=== PATIENT | female | born 1960 | race Caucasian/White ===

== ENCOUNTER 2017-02-16 15:41 | Emergency (ER) | payer BC ==
[~2017-02-16] VITALS: Ht 162.6 cm; Wt 94.3 kg
[~2017-02-16 15:41] MED LIST: ARIP2TAB3 PO; CIPR-255 PO; CLOB-65 EXT; IMT100 PO; LISD30CA4 PO; VENL150C PO; VENL75CA PO
[2017-02-16 15:42] VITALS: TEMP 36.5; Ht 162.6 cm; Wt 94.3 kg
[2017-02-16] MEDS ORDERED: ONDANSETRON INJ 2 MG/ML 2 ML VIAL IV STA (15:51)
[2017-02-16] MEDS ORDERED: SODIUM CHLORIDE 0.9% 1000ML 1,000 ML IV STA (15:51)
[2017-02-16] MEDS ORDERED: MoRPHine SULFATE 10 MG/ML CARP/VIAL IV STA (15:51)
[2017-02-16] MEDS ORDERED: CLON0.5T3 PO (15:56)
[2017-02-16 16:12] LABS: BASO % 0.1 %; BASO ABS # 0.01 K/uL (0-0.2); COMPLETE YES; HEMATOCRIT 41.3 % (37-47); IG% 0.4 %; LYMPH % 30.8 %; LYMPH ABS # 4.23 K/uL (1.2-3.4); MEAN CELL VOLUME 87.7 fL (80-100); MEAN CORPUSCULAR HEMOGLOBIN 30.4 pg (25-34); MEAN CORPUSCULAR HGB CONC 34.6 g/dl (32-36); MONO % 8.9 %; NEUT % 57.8 %; PLATELET COUNT 354 K/uL (130-400); RED BLOOD COUNT 4.71 M/uL (4.2-5.4); WHITE BLOOD COUNT 13.75 K/uL (4.8-10.8)
[2017-02-16 16:25] LABS: URINE APPEARANCE CLEAR (CLEAR); URINE BILIRUBIN NEG (NEG); URINE COLOR YELLOW; URINE EPITHELIAL CELL AUTO >30 /lpf (0-5); URINE NITRITE NEG (NEG); URINE PH 5.5 (4.5-7.5); UROBILINOGEN NEG (NEG); ZZUR CULT IF INDIC CLEAN CATCH YES
[2017-02-16] MEDS ORDERED: LISD70CA PO (16:25)
[2017-02-16] MEDS ORDERED: CYAN100020 PO (16:25)
[2017-02-16] MEDS ORDERED: VENL37.593 PO (16:25)
[2017-02-16] MEDS ORDERED: CLBCRM30 EXT (16:25)
[2017-02-16] MEDS ORDERED: CHOL20009 PO (16:25)
[2017-02-16] MEDS ORDERED: LXP10 PO (16:25)
--- NOTE | 2017-02-16 16:34 | DIAGNOSTIC IMAGING REPORT ---
CT SCAN OF THE ABDOMEN AND PELVIS WITHOUT CONTRAST CLINICAL HISTORY: Left flank pain. COMPARISON STUDY: No previous studies for comparison. TECHNIQUE: CT scan of the abdomen and pelvis was performed from the lung bases to the proximal femurs. Images are reviewed in the axial, sagittal, and coronal planes. IV contrast was not administered for this examination. CT DOSE: 1549.29 mGy.cm FINDINGS: Lower chest: The heart is normal in size and configuration, without pericardial effusion. The lung bases and pleural spaces are clear. Liver: The unenhanced liver is normal in size, contour, and attenuation. There is no intrahepatic biliary ductal dilatation. Gallbladder: Unremarkable. Spleen: Normal in size and attenuation. Pancreas: Unremarkable. Adrenal glands: Unremarkable. Kidneys: No right renal calculi are visualized. There are 3 left renal calculi, the largest of which measures 2 mm. There is left-sided perinephric stranding. There is mild left-sided hydronephrosis. There is left periureteral stranding. There is a 3.5 mm calculus at the level the left ureterovesical junction Bowel: There are no transition zones indicate bowel obstruction. The appendix appears normal. There is no acute diverticulitis. Peritoneum: There is no intraperitoneal free air or abdominal ascites. Vasculature: The abdominal aorta is normal in course and caliber. Adenopathy: None. Pelvic viscera: The bladder, and pelvic viscera are unremarkable. Skeletal structures: There is a 9 mm cyst within the femoral head neck junction on the left. IMPRESSION: 1. 3.5 mm obstructing calculus at the level the left ureterovesical junction. 2. Left-sided nephrolithiasis 3. No evidence of bowel obstruction. No evidence of free air 4. Normal appendix Electronically signed by: Donato Salgado M.D. 02/16/2017 4:32 PM Dictated Date/Time: 02/16/2017 4:29 PM
[2017-02-16 16:35] LABS: MANUAL MICROSCOPIC REQUIRED? NO; REVIEW REQ? NO
[2017-02-16 16:40] LABS: ALB/GLOB RATIO 1.1 (0.9-2); BUN/CREATININE RATIO 19.1 (10-20); CALCIUM 10.9 mg/dl (8.5-10.1); CREATININE 0.96 mg/dl (0.60-1.20); POTASSIUM 3.9 mmol/L (3.5-5.1)
[2017-02-16] MEDS ORDERED: CIPROFLOXACIN 500 MG TAB PO STA (17:00)
[2017-02-16] MEDS ORDERED: ONDANSETRON HOME PACK 4MG OD TAB PO ONE (17:00)
[2017-02-16] MEDS ORDERED: PERCOCET HOME PACK PO ONE (17:00)
[2017-02-16] MEDS ORDERED: TAMSULOSIN HCL 0.4 MG CAP PO ONE (17:00)
[2017-02-16] MEDS ORDERED: TAMS0.4C38 PO (17:27)
[2017-02-16] MEDS ORDERED: OXYC-57 PO (17:27)
[2017-02-16] MEDS ORDERED: CIPR-255 PO (17:27)
[2017-02-16] MEDS ORDERED: ONDA4TAB10 SL (17:27)
--- NOTE | 2017-02-16 17:31 | EMERGENCY ROOM VISIT NOTE ---
History First contact with patient: 15:46 Chief Complaint: FLANK PAIN Stated Complaint: SEVERE LF FLANK PAIN History of Present Illness The patient is a 56 year old female who presents to the Emergency Room with complaints of sudden onset of severe left flank pain 30 minutes ago. The patient states that while she was sitting at lunch, she developed a sudden onset of very severe pain in her left flank with radiation into the left groin. She rates the discomfort a 10/10. She has been nauseous but has not had any vomiting. She does report a feeling of pressure in her lower abdomen. She denies any urinary symptoms, fevers/chills, chest pain or shortness of breath. She denies any history of similar symptoms. She denies any history of kidney stones. The patient has not taken any medication for pain. Review of Systems A complete 10-point Review of Systems was discussed with the patient, with pertinent positives and negatives listed in the History of Present Illness. All remaining Review of Systems questions can be considered negative unless otherwise specified. Past Medical/Surgical History Medical Problems: (1) Anxiety Family History Cancer Heart disease Hypertension Seizures Social History Smoking Status: Never Smoker Alcohol Use: occasionally Marital Status: Housing Status: lives with significant other Occupation Status: unemployed Current/Historical Medications Scheduled Cholecalciferol (Vitamin D), 1 TAB PO DAILY Ciprofloxacin Hcl (Cipro), 500 MG PO BID Clobetasol Propionate (Clobetasol Propionate Cream 0.05%), 1 APPLN EXT PRN UD Cyanocobalamin (Vitamin B12), 1 TAB PO DAILY Escitalopram Oxalate (Escitalopram Oxalate), 10 MG PO DAILY Lisdexamfetamine Dimesylate (Vyvanse), 70 MG PO DAILY Ondasetron Odt (Zofran Odt), 4 MG SL Q6H Tamsulosin Hcl (Flomax), 0.4 MG PO DAILY Venlafaxine Hcl (Venlafaxine Extended Rel), 37.5 MG PO DAILY Scheduled PRN Clonazepam (Klonopin), 0.5 MG PO UD PRN for Anxiety Oxycodone/Acetaminophen 5MG/325MG (Percocet 5MG/325MG), 1-2 TABS PO Q4H PRN for Pain Sumatriptan Succinate (Imitrex), 100 MG PO UD PRN for Migraine Allergies Coded Allergies: Penicillins (Verified Allergy, Intermediate, RASH, 11/27/15) Sulfa Drugs (Verified Adverse Reaction, Intermediate, RASH, 11/27/15) Physical Exam Vital Signs Date Time Temp Pulse Resp B/P Pulse Ox O2 Delivery O2 Flow Rate FiO2 02/16/17 17:46 91 18 157/94 99 Room Air 02/16/17 16:29 92 18 175/112 97 Room Air 02/16/17 15:42 36.5 96 20 207/110 98 Room Air Physical Exam VITALS: Vitals are noted on the nurse's note and reviewed by myself. Vital signs stable. GENERAL: This is a 56-year-old female, tearful and appears to be in pain, nondiaphoretic, well-developed well-nourished. SKIN: Capillary reflex less than 2 seconds. HEART: Regular rate and rhythm without murmurs gallops or rubs. LUNGS: Clear to auscultation bilaterally without wheezes, rales or rhonchi. ABDOMEN: Positive bowel sounds x 4. Soft, mild left lower quadrant tenderness to palpation. No guarding or rebound tenderness. MUSCULOSKELETAL: No CVA tenderness. NEURO: Patient was alert and oriented to person place and time. Medical Decision & Procedures ER Provider Diagnostic Interpretation: CT SCAN OF THE ABDOMEN AND PELVIS WITHOUT CONTRAST FINDINGS: Lower chest: The heart is normal in size and configuration, without pericardial effusion. The lung bases and pleural spaces are clear. Liver: The unenhanced liver is normal in size, contour, and attenuation. There is no intrahepatic biliary ductal dilatation. Gallbladder: Unremarkable. Spleen: Normal in size and attenuation. Pancreas: Unremarkable. Adrenal glands: Unremarkable. Kidneys: No right renal calculi are visualized. There are 3 left renal calculi, the largest of which measures 2 mm. There is left-sided perinephric stranding. There is mild left-sided hydronephrosis. There is left periureteral stranding. There is a 3.5 mm calculus at the level the left ureterovesical junction Bowel: There are no transition zones indicate bowel obstruction. The appendix appears normal. There is no acute diverticulitis. Peritoneum: There is no intraperitoneal free air or abdominal ascites. Vasculature: The abdominal aorta is normal in course and caliber. Adenopathy: None. Pelvic viscera: The bladder, and pelvic viscera are unremarkable. Skeletal structures: There is a 9 mm cyst within the femoral head neck junction on the left. IMPRESSION: 1. 3.5 mm obstructing calculus at the level the left ureterovesical junction. 2. Left-sided nephrolithiasis 3. No evidence of bowel obstruction. No evidence of free air 4. Normal appendix Laboratory Results 02/16/17 16:01 Red Blood Count 4.71, Mean Corpuscular Volume 87.7, Mean Corpuscular Hemoglobin 30.4, Mean Corpuscular Hemoglobin Concent 34.6, Mean Platelet Volume 11.0, Neutrophils (%) (Auto) 57.8, Lymphocytes (%) (Auto) 30.8, Monocytes (%) (Auto) 8.9, Eosinophils (%) (Auto) 2.0, Basophils (%) (Auto) 0.1, Neutrophils # (Auto) 7.97, Lymphocytes # (Auto) 4.23, Monocytes # (Auto) 1.22, Eosinophils # (Auto) 0.27, Basophils # (Auto) 0.01 02/16/17 16:01 Test 02/16/17 16:01 02/16/17 16:05 White Blood Count 13.75 K/uL (4.8-10.8) Red Blood Count 4.71 M/uL (4.2-5.4) Hemoglobin 14.3 g/dL (12.0-16.0) Hematocrit 41.3 % (37-47) Mean Corpuscular Volume 87.7 fL (80-100) Mean Corpuscular Hemoglobin 30.4 pg (25-34) Mean Corpuscular Hemoglobin Concent 34.6 g/dl (32-36) Platelet Count 354 K/uL (130-400) Mean Platelet Volume 11.0 fL (7.4-10.4) Neutrophils (%) (Auto) 57.8 % Lymphocytes (%) (Auto) 30.8 % Monocytes (%) (Auto) 8.9 % Eosinophils (%) (Auto) 2.0 % Basophils (%) (Auto) 0.1 % Neutrophils # (Auto) 7.97 K/uL (1.4-6.5) Lymphocytes # (Auto) 4.23 K/uL (1.2-3.4) Monocytes # (Auto) 1.22 K/uL (0.11-0.59) Eosinophils # (Auto) 0.27 K/uL (0-0.5) Basophils # (Auto) 0.01 K/uL (0-0.2) RDW Standard Deviation 48.3 fL (36.4-46.3) RDW Coefficient of Variation 15.0 % (11.5-14.5) Immature Granulocyte % (Auto) 0.4 % Immature Granulocyte # (Auto) 0.05 K/uL (0.00-0.02) Anion Gap 10.0 mmol/L (3-11) Est Creatinine Clear Calc Drug Dose 73.8 ml/min Estimated GFR () 77.2 Estimated GFR (Non- 66.6 BUN/Creatinine Ratio 19.1 (10-20) Calcium Level 10.9 mg/dl (8.5-10.1) Total Bilirubin 0.6 mg/dl (0.2-1) Aspartate Amino Transf (AST/SGOT) 15 U/L (15-37) Alanine Aminotransferase (ALT/SGPT) 25 U/L (12-78) Alkaline Phosphatase 172 U/L (45-117) Total Protein 7.9 gm/dl (6.4-8.2) Albumin 4.1 gm/dl (3.4-5.0) Globulin 3.8 gm/dl (2.5-4.0) Albumin/Globulin Ratio 1.1 (0.9-2) Chemistry Specimen Hemolysis Urine Color YELLOW Urine Appearance CLEAR (CLEAR) Urine pH 5.5 (4.5-7.5) Urine Specific Floris 1.020 (1.000-1.030) Urine Protein TRACE (NEG) Urine Glucose (UA) NEG (NEG) Urine Ketones NEG (NEG) Urine Occult Blood 3+ (NEG) Urine Nitrite NEG (NEG) Urine Bilirubin NEG (NEG) Urine Urobilinogen NEG (NEG) Urine Leukocyte Esterase MODERATE (NEG) Urine WBC (Auto) >30 /hpf (0-5) Urine RBC (Auto) >30 /hpf (0-4) Urine Hyaline Casts (Auto) 5-10 /lpf (0-5) Urine Epithelial Cells (Auto) >30 /lpf (0-5) Urine Bacteria (Auto) NEG (NEG) Medications Administered Medications (Trade) Dose Ordered Sig/Job Route Start Time Stop Time Status Last Admin Dose Admin Sodium Chloride (Nss 1000ml) 1,000 ml @ 999 mls/hr Q1H1M STAT IV 02/16/17 15:51 02/16/17 16:51 DC 02/16/17 16:07 999 MLS/HR Morphine Sulfate (MoRPHine SULFATE INJ) 8 mg NOW STAT IV 02/16/17 15:51 02/16/17 15:53 DC 02/16/17 16:07 8 MG Ondansetron HCl (Zofran Inj) 4 mg NOW STAT IV 02/16/17 15:51 02/16/17 15:54 DC 02/16/17 16:07 4 MG Ciprofloxacin (Cipro Tab) 500 mg NOW STAT PO 02/16/17 17:00 02/16/17 17:07 DC 02/16/17 17:43 500 MG Tamsulosin HCl (Flomax Cap) 0.4 mg NOW ONCE PO 02/16/17 17:00 02/16/17 17:07 DC 02/16/17 17:43 0.4 MG Oxycodone/ Acetaminophen (Percocet 5/ 325MG Home Pack) 1 homepack UD ONCE PO 02/16/17 17:00 02/16/17 17:07 DC 02/16/17 17:00 1 HOMEPACK Ondansetron HCl (ZOFRAN ODT 4MG Home Pack) 1 homepack UD ONCE PO 02/16/17 17:00 02/16/17 17:07 DC 02/16/17 17:00 1 HOMEPACK Medical Decision Differential diagnosis includes renal colic chills, pyelonephritis, gastroenteritis, colitis, bowel obstruction, diverticulitis, aortic dissection, musculoskeletal pain, among others. The patient was evaluated as above. Labs were drawn and IV access was obtained. Imaging studies were performed and read by radiology as above. The patient was medicated with 1 L normal saline solution,. The patient was reassessed multiple times during their stay in the emergency department and remained in stable condition. The patient is a 56-year-old female who presents today complaining of left flank pain. The patient is significantly hypertensive likely secondary to pain. Labs revealed mild leukocytosis of 13.7 most likely secondary to stress. Otherwise no concerning anemia or electrolyte abnormalities CT scan did show a 3.5 mm renal calculus at the left UVJ. Urinalysis did show leukocyte esterase and white blood cells. This may be due to contamination, but given the patient's CT findings, I will place her on ciprofloxacin pending the culture. The patient felt significantly better after IV pain medication and antiemetics. Her hypertension improved. I do feel the patient may be treated as an outpatient and she was agreeable to this. She was given prescriptions for Flomax, Zofran and Percocet. She was given a urine strainer and information for urology follow-up. She was instructed to return if she has any worsening of her current condition or new/concerning symptoms. Based on the patient's presentation, lab results, and imaging studies, I feel the patient is stable for outpatient treatment. Discharge instructions were reviewed with the patient. The patient verbalized understanding of my assessment and treatment plan and was discharged home in good condition. Impression Primary Impression: Left ureteral calculus Departure Information Dispostion Home / Self-Care Condition GOOD Prescriptions Ciprofloxacin Hcl (CIPRO) 500 Mg Tab 500 MG PO BID for 7 Days, #14 TAB Prov: Maryjo Dey PA-C 02/16/17 Ondasetron Odt (ZOFRAN ODT) 4 Mg Tab 4 MG SL Q6H for Nausea, #15 TAB Prov: Maryjo Dey PA-C 02/16/17 Oxycodone/Acetaminophen 5MG/325MG (PERCOCET 5MG/325MG) Tab 1-2 TABS PO Q4H Y for Pain, #20 TAB For Initial Treatment Prov: Maryjo Dey PA-C 02/16/17 Tamsulosin Hcl (FLOMAX) 0.4 Mg Cap 0.4 MG PO DAILY for 10 Days, #10 CAP Prov: Maryjo Dey PA-C 02/16/17 Referrals Magdy Cueto M.D.(KARAN) (PCP) Lenny Rausch M.D. Patient Instructions Kidney Stones, My [facility] Additional Instructions You have been treated in the Emergency Department today for a Kidney Stone ( Nephrolithiasis). You have received pain medicine in the emergency department which impairs your ability to operate a vehicle. It is illegal for you to drive after receiving these medicines. You were prescribed ciprofloxacin to be taken twice daily. This is an antibiotic. All antibiotics have the potential to cause diarrhea. Stop this medication and contact a medical provider if you were to develop any significant adverse side effects including: wheezing, shortness of breath, passing out, vomiting, or a diffuse rash. Always take antibiotics as directed and COMPLETE the ENTIRE course regardless of the improvement of your symptoms. You have been prescribed Percocet to be used for pain control. This is a narcotic medication. You cannot drive or consume alcohol while on this medicine. This medicine should only be used for pain that cannot be controlled with [id number] pain medicines. You should take a stool softener such as Colace, as narcotic medications may cause constipation. You have been prescribed Zofran to be used for any nausea or vomiting. Take as prescribed. You have been prescribed Flomax 0.4 mg to be taken ONCE daily. This medicine has been prescribed as it can help relax the smooth muscles of the urinary tract increasing transit time of the kidney stone. For pain control, you can use the following [id number] medicines (if >12 yo): - Regular strength (325mg/tab) Tylenol (acetaminophen) 2 tabs every 4-6 hours as needed. Do not exceed 12 tablets in a 24 hour period. Avoid taking more than 4 grams (4000 mg) of Tylenol per day. This includes any other sources of acetaminophen you may take on a regular basis. - Regular strength (200 mg/tab) Advil (ibuprofen) 1-2 tabs every 4-6 hours as needed. Do not exceed a dose of 3200 mg per day. You have been provided a strainer and specimen collection cup. You should strain your urine to collect any passed stones. Your stones can be placed into the specimen cup and taken to your Urologist for further evaluation. You have been provided the contact information for the on-call Urologist. Schedule follow-up appointment with a urologist if you are not able to pass the stone on your own in 2-3 days. Return to the Emergency Department if your symptoms persist despite the treatment plan outlined above or if you develop the following symptoms: intractable pain, fever, chills, or large amounts of blood in your urine.
[2017-02-16 17:46] VITALS: BP 157/94; PULSE 91; O2SAT 99
== END 2017-02-16 17:50 | disposition home or self-care (01) ==
LOC: C.EDB 15:42 → C.EDC 17:50
DX: N20.1 Calculus of ureter (principal); F41.9 Anxiety disorder, unspecified; Z79.899 Other long term (current) drug therapy

== ENCOUNTER → 2017-06-18 | Outpatient (CLI) | payer BC ==
[~2017-06-18] MED LIST changes: -ARIP2TAB3 PO; +CHOL20009 PO; +CLBCRM30 EXT; -CLOB-65 EXT; +CLON0.5T3 PO; +CYAN100020 PO; -LISD30CA4 PO; +LISD70CA PO; +LXP10 PO; +ONDA4TAB10 SL; +OXYC-57 PO; -VENL150C PO; +VENL37.593 PO; -VENL75CA PO
== END | disposition home or self-care (01) ==
LOC: C.PAPS 11:18
PROVIDERS: ATTEND Obstetrics & Gynecology
DX: Z01.419 Encounter for gynecological examination (general) (routine) without abnormal findings (principal); Z11.51 Encounter for screening for human papillomavirus (HPV)

== ENCOUNTER 2021-02-21 16:48 | Observation (INO) ==
--- NOTE | 2021-02-21 18:31 | Emergency Department Note ---
Impression & Plan Pyelonephritis, Hydronephrosis, Right ureteral calculus, Fever ED Provider Note NAME: EVELINA LOVELACE AGE: 60 SEX: F : 1960 ARRIVES VIA: Walk-In INFORMANT: Patient, ED PROVIDER(S): Joe Rivera MD Chief Complaint: Flank pain, fever, outpatient referral HPI: Patient does present with the above symptoms. Patient states that she had some flank pain beginning yesterday which she thought was atypical from her kidney stone. The patient described it as right-sided radiating into the lower abdomen. The patient has had nausea but without vomiting. The patient states that she has had fevers first beginning yesterday to T-max of 101. The patient believes that she has a stone at the UVJ. Patient states that she was seen in the outpatient setting at [facility]rology where the patient had been pres cribed Zofran, ciprofloxacin and had recommended presenting to the emergency department due to the concern for her stone and fever. Patient also does have a recent history of right meniscus repair by Dr. Brody with [facility]. She was recently seen in the outpatient setting yesterday and stated that she had a dressing change and that the surgical site appeared well. Patient denies any chest pains or shortness of breath. Patient denies any dysuria. The patient did not take the prescription antibiotics prior to arrival. The patient has been taking [id number] medications but without much relief. The patient did take her narcotic medication earlier today when she was having some slight discomfort which did not much better symptoms. ROS: See HPI for pertinent positives and negatives. A total of 10 systems were reviewed and otherwise negative. Past medical history: See below Surgical history: See below Social history: See below Physical Exam: GENERAL: Well appearing, well nourished, NAD, non-toxic. EYE EXAM: Normal conjunctiva. PERRL, no anisocoria and EOM's grossly intact w/o pain. NECK: Supple, no nuchal rigidity, no adenopathy, non-tender. No signs of meningismus. LUNGS: Clear to auscultation. Normal chest wall mechanics. HEART: NSR, no MRG. ABDOMEN: Abdomen soft, right flank pain without peritonitis normo-active bowel sounds, no masses, no rebound or guarding. BACK: No CVA TTP. SKIN: No rashes and no bruising. UPPER EXTREMITIES: Upper extremities are grossly normal. LOWER EXTREMITIES: Grossly normal, no edema. Right lower extremity in knee o rthosis, wrap in place, compartments are soft with good DP pulse in the right lower extremity. NEURO EXAM: A&O x3, cranial nerves II-XII grossly intact, normal speech, moves all 4 extremities on command w/o issue. Differential diagnoses: Renal colic, UTI, appendicitis, diverticulitis, mesenteric ischemia, aortic pathology, infections, inflammatory bowel disease, PUD, biliary pathology, as well as other pathologies. Course: Patient was seen and evaluated the bedside. Full history physical exam was performed. EKG: Indication: Tachycardia Normal sinus rhythm, rate of 91, normal intervals, normal axis, no obvious ST elevations, no T WI. No significant change from comparison EKG April 18, 2015. Imaging Studies: See below Cardiac monitoring: An order was placed for continuous cardiac monitoring. The monitor shows a rate of 92 with sinus rhythm. MDM: Patient did present with flank pain and fever with a known history of obstructing kidney stone. Blood work is obtained along with an EKG troponin chest x-ray. I did review the patient's prior urine cultures which she did not have so cefepime was ordered given her penicillin allergy. Patient CT did show a right-sided obstructing stone with hydro-. Given this with a fever I did speak with the on-call urologist Dr. Cool and he did state that the patient's pro-Aris and white count are normal and the patient's tachycardia is improved. Patient did have low-grade temperature here. Do not believe that she requires any emergent stenting right at this moment but the if the patient did have a change in her clinical condition he is agreeable to come in for stenting even overnight. I did subsequently convey this to the hospitalist Dr. Laura. The patient was admitted to the medicine service. CT did show also mild urothel ial thickening. Patient's urinalysis does not appear to be grossly infected but given the fever and stone again I believe she would want the antibiotics. Covid negative. Chest Xray is clear. Past Med/Surg History Medical History Anxiety and depression Dry eyes Eczema Migraine Surgical History History of colonoscopy History of herniorrhaphy INGUINAL HERNIA History of open reduction and internal fixation (ORIF) procedure LEFT FIBIA (HARDWARE INTACT) [place] teeth removed Family History Other No family history of adverse response to anesthesia Social History Smoking Status: Never smoker Second Hand Exposure: No (when she was a child); Do You Dip or Chew Tobacco: No; Hx Alcohol Use: Yes Alcohol type: wine Hx Substance Use: No Preferred Language: Turkish Communication Ability: Effective 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5 mg tablet 0.5 mg PO DAILY PRN 10/26/20 02/21/21 escitalopram oxalate 10 mg tablet 10 mg PO QAM 10/26/20 02/21/21 Restasis 1 drp OPHTHALMIC (EYE) Q12H 01/31/21 02/21/21 Vyvanse 70 mg PO QAM 01/31/21 02/21/21 clobetasol 1 applic TOPICAL DAILY 02/21/21 02/21/21 Previous Rx's Medication Instructions Recorded oxycodone 5 mg PO Q6H PRN #10 tab 02/19/21 tamsulosin [Flomax] 0.4 mg PO DAILY #10 cap 02/19/21 Results & Data (ED) Vital Signs Vital Signs - 24 hr 02/21/21 17:00 02/21/21 19:30 02/21/21 19:34 Temperature 37.6 C H Temperature Source Temporal Artery Scan Pulse Rate 102 H 94 H 93 H Pulse Rate from SpO2 Sensor 93 H Pulse Rhythm Respiratory Rate 17 16 17 Respiratory Effort / Characteristics Non-Labored Spontaneous Respiratory Depth Normal Blood Pressure 175/87 H 157/93 H Blood Pressure Mean 116 114 Blood Pressure Position Sitting Pulse Oximetry 99 97 Oxygen Delivery Method Room Air Sepsis Recent Fever Within 48 Hours Yes Sepsis New/Unexplained Change in Mental Status No Sepsis Action Taken by Nursing No Action Required 02/21/21 20:00 02/21/21 20:01 02/21/21 20:30 Temperature Temperature Source Pulse Rate 91 H 92 H 76 Pulse Rate from SpO2 Sensor 92 H 92 H Pulse Rhythm Regular Respiratory Rate 16 18 18 Respiratory Effort / Characteristics Spontaneous Respiratory Depth Blood Pressure 153/87 H Blood Pressure Mean 109 Blood Pressure Position Pulse Oximetry 98 97 96 Oxygen Delivery Method Room Air Sepsis Recent Fever Within 48 Hours Sepsis New/Unexplained Change in Mental Status Sepsis Action Taken by Nursing 02/21/21 20:40 02/21/21 21:00 02/21/21 21:01 Temperature Temperature Source Pulse Rate 91 H 90 89 Pulse Rate from SpO2 Sensor 91 H 91 H 89 Pulse Rhythm Respiratory Rate 14 15 14 Respiratory Effort / Characteristics Respiratory Depth Blood Pressure 133/78 Blood Pressure Mean 96 Blood Pressure Position Pulse Oximetry 96 97 97 Oxygen Delivery Method Sepsis Recent Fever Within 48 Hours Sepsis New/Unexplained Change in Mental Status Sepsis Action Taken by Nursing 02/21/21 21:05 02/21/21 21:30 02/21/21 21:31 Temperature 37.8 C H Temperature Source Oral Pulse Rate 97 H 95 H Pulse Rate from SpO2 Sensor 95 H 95 H Pulse Rhythm Respiratory Rate 13 17 Respiratory Effort / Characteristics Respiratory Depth Blood Pressure 125/76 Blood Pressure Mean 92 Blood Pressure Position Pulse Oximetry 96 96 Oxygen Delivery Method Sepsis Recent Fever Within 48 Hours Sepsis New/Unexplained Change in Mental Status Sepsis Action Taken by Nursing 02/21/21 22:00 02/21/21 22:01 Temperature Temperature Source Pulse Rate 85 85 Pulse Rate from SpO2 Sensor 85 84 Pulse Rhythm Respiratory Rate 14 16 Respiratory Effort / Characteristics Respiratory Depth Blood Pressure 130/75 Blood Pressure Mean 93 Blood Pressure Position Pulse Oximetry 96 95 Oxygen Delivery Method Sepsis Recent Fever Within 48 Hours Sepsis New/Unexplained Change in Mental Status Sepsis Action Taken by Skilled Nursing Medications Current Medication List: was personally reviewed by me Laboratory Data Attestation: I reviewed the patient's lab results. Result diagrams: 02/22/21 08:20 02/22/21 08:20 Lab Results 02/21/21 02/21/21 02/21/21 Range/Units 19:20 19:20 19:20 WBC 9.39 (4.8-10.8) K/uL RBC 4.26 (4.2-5.4) M/uL Hgb 13.3 (12.0-16.0) g/dL Hct 39.2 (37-47) % MCV 92.0 (80-100) fL MCH 31.2 (25-34) pg MCHC 33.9 (32-36) g/dL RDW Std Deviation 45.1 (36.4-46.3) fL RDW Coeff of Emiliano 13.4 (11.5-14.5) % Plt Count 283 (130-400) K/uL MPV 10.2 (7.4-10.4) fL Immature Gran % (Auto) 0.3 % Neut % (Auto) 81.7 % Lymph % (Auto) 8.7 % [place] % (Auto) 8.6 % Eos % (Auto) 0.7 % Baso % (Auto) 0.0 % Neut # (Auto) 7.66 H (1.4-6.5) K/uL Lymph # (Auto) 0.82 L (1.2-3.4) K/uL [place] # (Auto) 0.81 H (0.11-0.59) K/uL Eos # (Auto) 0.07 (0-0.5) K/uL Baso # (Auto) 0.00 (0-0.2) K/uL Immature Gran # (Auto) 0.03 H (0.00-0.02) K/uL PT 9.8 (9.0-12.0) Seconds INR 1.0 (0.9-1.1) APTT 29.1 (21.0-31.0) Seconds PTT Ratio 1.1 Sodium 134 L (136-145) mmol/L Potassium 3.8 (3.5-5.1) mmol/L Chloride 103 (98-107) mmol/L Carbon Dioxide 26 (21-32) mmol/L Anion Gap 5.0 (3-11) BUN 16 (7-18) mg/dl Creatinine 1.22 H (0.6-1.2) mg/dl Est Cr Clr Drug Dosing Not Reportable Est GFR ( Amer) 56.2 Est GFR (Non-Af Amer) 48.5 BUN/Creatinine Ratio 13.0 (10-20) Glucose 118 H (70-99) mg/dl Lactate (0.4-2.0) mmol/L Calcium 10.4 H (8.5-10.1) mg/dl Magnesium 2.0 (1.8-2.4) mg/dl Total Bilirubin 1.3 H (0.2-1) mg/dl AST 13 L (15-37) U/L ALT 28 (12-78) U/L Alkaline Phosphatase 149 H (45-117) U/L Troponin I < 0.015 (0-0.045) ng/ml Total Protein 7.6 (6.4-8.2) gm/dl Albumin 3.6 (3.4-5.0) gm/dl Globulin 4.0 (2.5-4.0) gm/dl Albumin/Globulin Ratio 0.9 (0.9-2) Procalcitonin (0-0.5) ng/ml Urine Color Urine Appearance (Clear) Urine pH (4.5-7.5) Ur Specific [place] (1.000-1.030) Urine Protein (Negative) Urine Glucose (UA) (Negative) Urine Ketones (Negative) Urine Blood (Negative) Urine Nitrite (Negative) Urine Bilirubin (Negative) Urine Urobilinogen (Negative) Ur Leukocyte Esterase (Negative) Urine WBC (Auto) (0-5) /hpf Urine RBC (Auto) (0-4) /hpf U Hyaline Cast (Auto) (0-5) /lpf U Epithel Cells (Auto) (0-5) /lpf Urine Bacteria (Auto) (Negative) COVID-19 Eval Order SARS-CoV-2 (PCR) (Negative) Influenza Type A (PCR) (Neg) Influenza Type B (PCR) (Neg) RSV (RT-PCR) (Neg) 02/21/21 02/21/21 02/21/21 Range/Units 19:20 19:20 19:32 WBC (4.8-10.8) K/uL RBC (4.2-5.4) M/uL Hgb (12.0-16.0) g/dL Hct (37-47) % MCV (80-100) fL MCH (25-34) pg MCHC (32-36) g/dL RDW Std Deviation (36.4-46.3) fL RDW Coeff of Emiliano (11.5-14.5) % Plt Count (130-400) K/uL MPV (7.4-10.4) fL Immature Gran % (Auto) % Neut % (Auto) % Lymph % (Auto) % [place] % (Auto) % Eos % (Auto) % Baso % (Auto) % Neut # (Auto) (1.4-6.5) K/uL Lymph # (Auto) (1.2-3.4) K/uL [place] # (Auto) (0.11-0.59) K/uL Eos # (Auto) (0-0.5) K/uL Baso # (Auto) (0-0.2) K/uL Immature Gran # (Auto) (0.00-0.02) K/uL PT (9.0-12.0) Seconds INR (0.9-1.1) APTT (21.0-31.0) Seconds PTT Ratio Sodium (136-145) mmol/L Potassium (3.5-5.1) mmol/L Chloride (98-107) mmol/L Carbon Dioxide (21-32) mmol/L Anion Gap (3-11) BUN (7-18) mg/dl Creatinine (0.6-1.2) mg/dl Est Cr Clr Drug Dosing Est GFR ( Amer) Est GFR (Non-Af Amer) BUN/Creatinine Ratio (10-20) Glucose (70-99) mg/dl Lactate 1.2 (0.4-2.0) mmol/L Calcium (8.5-10.1) mg/dl Magnesium (1.8-2.4) mg/dl Total Bilirubin (0.2-1) mg/dl AST (15-37) U/L ALT (12-78) U/L Alkaline Phosphatase (45-117) U/L Troponin I (0-0.045) ng/ml Total Protein (6.4-8.2) gm/dl Albumin (3.4-5.0) gm/dl Globulin (2.5-4.0) gm/dl Albumin/Globulin Ratio (0.9-2) Procalcitonin 0.05 (0-0.5) ng/ml Urine Color Yellow Urine Appearance Turbid A (Clear) Urine pH >= 9.0 H (4.5-7.5) Ur Specific [place] 1.017 (1.000-1.030) Urine Protein Negative (Negative) Urine Glucose (UA) Negative (Negative) Urine Ketones Negative (Negative) Urine Blood 3+ H (Negative) Urine Nitrite Negative (Negative) Urine Bilirubin Negative (Negative) Urine Urobilinogen Negative (Negative) Ur Leukocyte Esterase Negative (Negative) Urine WBC (Auto) 1-5 (0-5) /hpf Urine RBC (Auto) >30 H (0-4) /hpf U Hyaline Cast (Auto) 1-5 (0-5) /lpf U Epithel Cells (Auto) 5-10 H (0-5) /lpf Urine Bacteria (Auto) Negative (Negative) COVID-19 Eval Order SARS-CoV-2 (PCR) (Negative) Influenza Type A (PCR) (Neg) Influenza Type B (PCR) (Neg) RSV (RT-PCR) (Neg) 02/21/21 02/21/21 Range/Units 20:06 20:06 WBC (4.8-10.8) K/uL RBC (4.2-5.4) M/uL Hgb (12.0-16.0) g/dL Hct (37-47) % MCV (80-100) fL MCH (25-34) pg MCHC (32-36) g/dL RDW Std Deviation (36.4-46.3) fL RDW Coeff of Emiliano (11.5-14.5) % Plt Count (130-400) K/uL MPV (7.4-10.4) fL Immature Gran % (Auto) % Neut % (Auto) % Lymph % (Auto) % [place] % (Auto) % Eos % (Auto) % Baso % (Auto) % Neut # (Auto) (1.4-6.5) K/uL Lymph # (Auto) (1.2-3.4) K/uL [place] # (Auto) (0.11-0.59) K/uL Eos # (Auto) (0-0.5) K/uL Baso # (Auto) (0-0.2) K/uL Immature Gran # (Auto) (0.00-0.02) K/uL PT (9.0-12.0) Seconds INR (0.9-1.1) APTT (21.0-31.0) Seconds PTT Ratio Sodium (136-145) mmol/L Potassium (3.5-5.1) mmol/L Chloride (98-107) mmol/L Carbon Dioxide (21-32) mmol/L Anion Gap (3-11) BUN (7-18) mg/dl Creatinine (0.6-1.2) mg/dl Est Cr Clr Drug Dosing Est GFR ( Amer) Est GFR (Non-Af Amer) BUN/Creatinine Ratio (10-20) Glucose (70-99) mg/dl Lactate (0.4-2.0) mmol/L Calcium (8.5-10.1) mg/dl Magnesium (1.8-2.4) mg/dl Total Bilirubin (0.2-1) mg/dl AST (15-37) U/L ALT (12-78) U/L Alkaline Phosphatase (45-117) U/L Troponin I (0-0.045) ng/ml Total Protein (6.4-8.2) gm/dl Albumin (3.4-5.0) gm/dl Globulin (2.5-4.0) gm/dl Albumin/Globulin Ratio (0.9-2) Procalcitonin (0-0.5) ng/ml Urine Color Urine Appearance (Clear) Urine pH (4.5-7.5) Ur Specific [place] (1.000-1.030) Urine Protein (Negative) Urine Glucose (UA) (Negative) Urine Ketones (Negative) Urine Blood (Negative) Urine Nitrite (Negative) Urine Bilirubin (Negative) Urine Urobilinogen (Negative) Ur Leukocyte Esterase (Negative) Urine WBC (Auto) (0-5) /hpf Urine RBC (Auto) (0-4) /hpf U Hyaline Cast (Auto) (0-5) /lpf U Epithel Cells (Auto) (0-5) /lpf Urine Bacteria (Auto) (Negative) COVID-19 Eval Order CovFluRsv at [facility] SARS-CoV-2 (PCR) NEGATIVE (Negative) Influenza Type A (PCR) Negative (Neg) Influenza Type B (PCR) Negative (Neg) RSV (RT-PCR) Negative (Neg) Administered Medications Acetaminophen (Acetaminophen 325 Mg Tab) 650 mg PO Q4H PRN PRN Reason: pain/fever Stop: 03/23/21 23:24 Last Admin: 02/22/21 12:05 Dose: 650 mg Documented by: [id number] Escitalopram Oxalate (Escitalopram Oxalate 10 Mg Tab) [address] [facility] Stop: 03/24/21 08:59 Last Admin: 02/22/21 08:52 Dose: 10 mg Documented by: [id number] Ceftriaxone Sodium 2,000 mg/ (Dextrose) 70 mls @ 100 mls/hr IV Q24H [facility]; Protocol Stop: 03/04/21 00:00 Last Infusion: 02/22/21 00:44 Dose: 0 mls/hr Documented by: [id number] Admin: 02/22/21 00:01 Dose: 100 mls/hr Documented by: [id number] Ketorolac Tromethamine (Ketorolac Tromethamine 15 Mg/Ml Vial) 15 mg IV Q6H PRN PRN Reason: Pain & Pre PT Stop: 02/26/21 23:24 Last Admin: 02/22/21 03:34 Dose: 15 mg Documented by: [id number] Miscellaneous (Vyvanse~Order Awaiting Action) 1 ea N/A QS [facility] Stop: 03/24/21 07:59 Last Admin: 02/22/21 08:51 Dose: Not Given Documented by: [id number] Polyethylene Glycol (Polyethylene (Miralax) 17 Gm Pack) 17 gm PO DAILY PRN PRN Reason: Constipation Stop: 03/24/21 09:16 Last Admin: 02/22/21 12:05 Dose: 17 gm Documented by: [id number] Tamsulosin HCl (Tamsulosin Hcl 0.4 Mg Cap) 0.[address] [facility] Stop: 03/24/21 08:59 Last Admin: 02/22/21 08:51 Dose: 0.4 mg Documented by: [id number] Discontinued Medications Sodium Chloride (Nss 1000ml) 1,000 mls @ 999 mls/hr IV .Q1H1M [facility] Stop: 02/21/21 19:48 Last Infusion: 02/21/21 20:51 Dose: 0 mls/hr Documented by: [id number] Admin: 02/21/21 19:50 Dose: 999 mls/hr Documented by: [id number] Sodium Chloride (Nss 1000ml) 1,000 mls @ 999 mls/hr IV .Q1H1M [facility] Stop: 02/21/21 20:48 Last Infusion: 02/22/21 01:17 Dose: 0 mls/hr Documented by: [id number] Admin: 02/22/21 00:11 Dose: 999 mls/hr Documented by: [id number] Cefepime HCl (Maxipime) 2,000 mg in 20 mls @ 5 mls/min IV NOW STA; Protocol Stop: 02/21/21 18:51 Last Admin: 02/21/21 19:54 Dose: 5 mls/min Documented by: [id number] Acetaminophen (Ofirmev) 1,000 mg in 100 mls @ 400 mls/hr IV NOW STA Stop: 02/21/21 19:48 Last Infusion: 02/21/21 20:38 Dose: 0 mls/hr Documented by: [id number] Admin: 02/21/21 19:54 Dose: 400 mls/hr Documented by: [id number] Lactated Ringer's (Lr) 1,000 mls @ 150 mls/hr IV .Q6H40M [facility] Stop: 02/22/21 12:44 Last Admin: 02/22/21 08:51 Dose: Not Given Documented by: [id number] Infusion: 02/22/21 08:50 Dose: 0 mls/hr Documented by: [id number] Admin: 02/22/21 01:16 Dose: 150 mls/hr Documented by: [id number] Ioversol (Ioversol 100ml) 92 ml IV ONCE ONE Stop: 02/21/21 20:32 Last Admin: 02/21/21 20:32 Dose: 92 ml Documented by: [id number] Morphine Sulfate (Morphine Sulfate 4 Mg/Ml 1 Ml Carp\Vial) 4 mg IV NOW STA Stop: 02/21/21 18:49 Last Admin: 02/21/21 19:51 Dose: 4 mg Documented by: [id number] Ondansetron HCl (Ondansetron Inj 2 Mg/Ml 2 Ml Vial) 4 mg IV NOW STA Stop: 02/21/21 18:49 Last Admin: 02/21/21 19:51 Dose: 4 mg Documented by: [id number] Tamsulosin HCl (Tamsulosin Hcl 0.4 Mg Cap) 0.4 mg PO NOW ONE Stop: 02/21/21 22:14 Last Admin: 02/21/21 23:08 Dose: 0.4 mg Documented by: [id number] Discharge Plan Visit Data Chief Complaint: Kidney Stone Stated Complaint: KIDNEY STONE/INFECTION REF BY ED Provider: Joe Rivera Discharge Problem: Pyelonephritis, Hydronephrosis, Right ureteral calculus, Fever Patient Disposition: Admitted As Inpatient Discharge Instructions Interventions: ED Discharge Assessment Last Done: 02/21/21 23:13 Discharge Problem: Hydronephrosis Qualifiers: Hydronephrosis type: with ureteral calculous obstruction Qualified Code(s): N13.2 - Hydronephrosis with renal and ureteral calculous obstruction Fever Qualifiers: Fever type: unspecified Qualified Code(s): R50.9 - Fever, unspecified
[2021-02-21] MEDS ORDERED: CEFEPIME 2,000 MG/20 ML VIAL IV STA (18:48)
[2021-02-21] MEDS ORDERED: MoRPHine SULFATE 4 MG/ML 1 ML CARP\\VIAL IV STA (18:48)
[2021-02-21] MEDS ORDERED: ONDANSETRON INJ 2 MG/ML 2 ML VIAL IV STA (18:48)
[2021-02-21] MEDS ORDERED: SODIUM CHLORIDE 0.9% 1000ML 1,000 ML IV SCH ×2 (19:00→19:48)
--- NOTE | 2021-02-21 19:10 | XRay Report ---
SINGLE VIEW CHEST CLINICAL HISTORY: Sepsis. FINDINGS: An AP, portable, upright chest radiograph is compared to study dated 04/18/2015. The heart is top normal for projection. There is mild bibasilar atelectasis. No airspace consolidation or large p leural effusion is identified. No pneumothorax is seen. The skeletal structures are osteopenic. The b rd thorax is grossly intact. IMPRESSION: No acute cardiopulmonary abnormality. ACT 112: Negative or not required by law. Electronically signed by: Jeet Vazquez M.D. 02/21/2021 7:08 PM
[2021-02-21] MEDS ORDERED: ACETAMINOPHEN 1,000 MG/100 ML VIAL IV STA (19:34)
[2021-02-21 19:39] LABS: Eosinophils # (auto) 0.07 K/uL (0-0.5); Eosinophils % (auto) 0.7 %; Hematocrit (blood only) 39.2 % (37-47); Hemoglobin 13.3 g/dL (12.0-16.0); Immature Granulocytes # (auto) 0.03 K/uL (0.00-0.02); Immature Granulocytes % (auto) 0.3 %; Lymphocytes # (auto) 0.82 K/uL (1.2-3.4); Lymphocytes % (auto) 8.7 %; Mean Corpuscular Hemoglobin 31.2 pg (25-34); Mean Corpuscular Hgb Conc 33.9 g/dL (32-36); Mean Platelet Volume 10.2 fL (7.4-10.4); Monocytes # (auto) 0.81 K/uL (0.11-0.59); Monocytes % (auto) 8.6 %; Neutrophils # (auto) 7.66 K/uL (1.4-6.5); Neutrophils % (auto) 81.7 %; Platelet Count 283 K/uL (130-400); RDW Coefficient of Variation 13.4 % (11.5-14.5); RDW Standard Deviation 45.1 fL (36.4-46.3); Red Blood Count 4.26 M/uL (4.2-5.4); White Blood Count 9.39 K/uL (4.8-10.8)
[2021-02-21 19:40] LABS: Appearance Urine Turbid (Clear); Bacteria Urine Automated Negative (Negative); Bilirubin Urine Negative (Negative); Blood Urine 3+ (Negative); Color Urine Yellow; Glucose Urine UA Negative (Negative); Ketones Urine Negative (Negative); Leukocyte Esterase Urine Negative (Negative); Nitrite Urine Negative (Negative); Protein Urine Negative (Negative); RBC Urine Automated >30 /hpf (0-4); Specific Gravity Urine 1.017 (1.000-1.030); Urobilinogen Urine Negative (Negative); pH Urine >= 9.0 (4.5-7.5)
[2021-02-21 19:48] LABS: Partial Thromboplastin Ratio 1.1; Partial Thromboplastin Time 29.1 Seconds (21.0-31.0); Prothrombin Time 9.8 Seconds (9.0-12.0)
[2021-02-21 20:02] LABS: Alanine Aminotransferase 28 U/L (12-78); Albumin Level 3.6 gm/dl (3.4-5.0); Aspartate Aminotransferase 13 U/L (15-37); Blood Urea Nitrogen 16 mg/dl (7-18); Calcium 10.4 mg/dl (8.5-10.1); Carbon Dioxide 26 mmol/L (21-32); Chloride 103 mmol/L (98-107); Est GFR (African American) 56.2; Est GFR (Non-African American) 48.5; Glucose 118 mg/dl (70-99); Potassium 3.8 mmol/L (3.5-5.1); Sodium 134 mmol/L (136-145)
[2021-02-21 20:07] LABS: Albumin Globulin Ratio 0.9 (0.9-2); Alkaline Phosphatase 149 U/L (45-117); Bilirubin,Total 1.3 mg/dl (0.2-1); Total Protein 7.6 gm/dl (6.4-8.2); Troponin I < 0.015 ng/ml (0-0.045)
[2021-02-21] MEDS ORDERED: OPTIRAY 320 100ml IV ONE (20:31)
--- NOTE | 2021-02-21 20:47 | CT Scan Report ---
CT SCAN OF THE ABDOMEN AND PELVIS WITH IV CONTRAST CLINICAL HISTORY: Flank pain. Nephrolithiasis. Fever. COMPARISON STUDY: Abdominal CT dated 02/19/2021. TECHNIQUE: Following the IV administration of 92 cc of Optiray 320, CT scan of the abdomen and pelvi s is performed from the lung bases to the proximal femora. Images are reviewed in the axial, sagittal , and coronal planes. IV contrast was administered without complication. A dose lowering technique wa s utilized adhering to the principles of ALARA. CT DOSE: 742.50 mGy.cm FINDINGS: Lung bases: The heart is normal in size noting trace pericardial effusion. The lung bases are clear n oting dependent atelectasis. Liver: The contrast-enhanced liver is normal in size, contour, and attenuation. There is no intrahepa tic biliary ductal dilatation. The hepatic veins and portal veins are patent. Gallbladder: Unremarkable. Spleen: Normal in size and attenuation. Pancreas: Moderately atrophic and grossly unremarkable. Adrenal glands: Unremarkable. Kidneys: The right kidney is edematous. The contrast enhanced kidneys are normal in size. There is an 8 mm obstructing calculus protruding from the right vesicoureteral junction seen on image #[id number]. This causes moderate right hydroureteronephrosis. There is associated right-sided perinephric and periure teric stranding. Minimal urothelial thickening is noted in the right ureter. There is heterogeneously diminished enhancement of the right kidney as compared to the left. The left kidney enhances homogen eously. No additional right renal calculi are identified on this contrast-enhanced examination. There are least 2 nonobstructing left kidney stones measuring up to 3 mm. There is no left-sided hydroneph rosis. Abdominal vasculature: The abdominal aorta is normal in course and caliber. Bowel: There is no bowel obstruction. Mild fecal retention is noted throughout the colon. A 1.4 cm du odenal lipoma is incidentally noted. The appendix is well-visualized and normal. Peritoneum: There is no intraperitoneal free air or abdominal ascites. Lymphadenopathy: None. Pelvic viscera: The bladder, uterus, and adnexa are normal as visualized. Skeletal structures: Hemangiomas are incidentally noted in the bodies of T11 and L3. No lytic or daniela tic lesions are seen. IMPRESSION: 1. There is unchanged appearance of an 8 mm obstructing calculus protruding from the right vesicouret eral junction as compared to 02/19/2021. This causes moderate right hydroureteronephrosis. 2. Nonobstructing left renal calculi as above. 3. There is minimal urothelial thickening and enhancement noted in the right ureter as well as hetero geneously diminished enhancement of the right kidney as compared to the left. This is likely related to obstruction/hydronephrosis. Correlate clinically for evidence of superimposed urinary tract infect ion. 4. Additional findings as above. ACT 112: Negative or not required by law. Electronically signed by: Jeet Vazquez M.D. 02/21/2021 8:45 PM
[2021-02-21 21:00] LABS: Influenza A virus by PCR Negative (Neg); Influenza B virus by PCR Negative (Neg); RSV by PCR Negative (Neg); SARS CoV2 RNA(COVID-19) InHosp NEGATIVE (Negative)
--- NOTE | 2021-02-21 22:10 | History & Physical Report ---
Date of Service February 21, 2021 Assessment & Plan (1) Acute flank pain: Patient is a 60 year old female with PMHx Anxiety, Depression, Nephrolithiasis, that presents with 2 day history of worsening R low back/flank pain and 1 day history of nausea and vomiting. Obstructing Nephrolithiasis R with hydronephrosis and UTI -CT Ab/Pelv noting an 8mm obstructing stone of the R VUJ with moderate right hydroureteronephrosis -Received 2L NSS, 4mg morphine, 4mg zofran in the ED -Will give Ceftriaxone QD for suspected UTI, urine culture pending -Urology consulted for possible stent vs lithotripsy -NPO, LR 150ml/hr x2L -Flomax 0.4mg now and then daily -Zofran PRN nausea -Pain control with Tylenol, Toradol, and Morphine -Strain all urine Anxiety/Depression -Continue home Lexapro and Vyvanse -Home Klonopin PRN Dispo: Med/Surg for IVF, IV abx, pain control FEN: NPO, LR 150ml/hr x2L DVT: SCDs Code: Full (2) Renal colic: (3) Hydronephrosis: (4) Leukocytosis: (5) Right nephrolithiasis: History of Present Illness Chief Complaint: Nausea, Vomiting, Kidney pain Primary Care Provider: NO PCP Patient is a 60 year old female with PMHx Anxiety, Depression, Nephrolithiasis, that presents with 2 day history of worsening R low back/flank pain and 1 day history of nausea and vomiting. Patient notes that 2 days ago she noted significant 10/10 sharp R side low back pain and flank pain and was evaluated in the ED. At that time she was found to have a stone in her R distal ureter and was given pain medications and flomax and discharged home to pass the stone. Patient returns today with complaint of nausea, fevers, chills, flank pain, and urinary urgency. She notes that she went and saw her Urologist at [facility] today as well and her temperature was 101F and was instructed to come to the ED. Of note patient states that she feels this has been an ongoing issue for the past 4-5 weeks where she has noted hematuria. She also states she had her 2nd COVID-19 vaccination yesterday on 02/20/21. Lastly she states that she a R knee meniscal repair 10 days ago. Her last renal stone was over 5 years ago which at that point she was able to pass without issues. She currently notes flank pain, nausea, urgency, and occasional chills and fevers. She denies any chest pain, chest pressure, SOB, vomiting, dysuria. Med Hx: Anxiety, Depression, Nephrolithiasis. Surg Hx: Inguinal hernia repair, ORIF L fib, R medial meniscal repair Soc Hx: No tobacco, alcohol, or illicit drug use. Allergies Allergy/AdvReac Type Severity Reaction Status Date / Time Penicillins Allergy Mild RASH Verified 02/21/21 20:18 Sulfa (Sulfonamide Allergy Mild RASH Verified 02/21/21 20:18 Antibiotics) nickel AdvReac Mild SKIN Verified 02/21/21 20:18 IRRITATION Home Medications Medication Instructions Recorded Confirmed Type clonazepam 0.5 mg tablet 0.5 mg PO DAILY PRN 10/26/20 02/21/21 History escitalopram oxalate 10 mg tablet 10 mg PO QAM 10/26/20 02/21/21 History Restasis 1 drp OPHTHALMIC (EYE) Q12H 01/31/21 02/21/21 History Vyvanse 70 mg PO QAM 01/31/21 02/21/21 History oxycodone 5 mg PO Q6H PRN #10 tab 02/19/21 02/21/21 Rx tamsulosin [Flomax] 0.4 mg PO DAILY #10 cap 02/19/21 02/21/21 Rx clobetasol 1 applic TOPICAL DAILY 02/21/21 02/21/21 History Past Med/Surg History Medical History Anxiety and depression Dry eyes Eczema Migraine Surgical History History of colonoscopy History of herniorrhaphy INGUINAL HERNIA History of open reduction and internal fixation (ORIF) procedure LEFT FIBIA (HARDWARE INTACT) [place] teeth removed Family History Other No family history of adverse response to anesthesia Social History Smoking Status: Never smoker Second Hand Exposure: No (when she was a child); Do You Dip or Chew Tobacco: No; Hx Alcohol Use: Yes Alcohol type: wine Hx Substance Use: No Preferred Language: Turkmen Communication Ability: Effective Biztalk Consultant Required: No Beliefs That Will Affect Care: None Current Living Situation: Spouse and Family Other Information That Helps Us Care for You: No Feels Safe at Home: Yes Safety Concerns: Feels Safe At This Time Assistive Devices: Brace/Splint/Immobilizer and Glasses Review of Systems Review of Systems: All systems reviewed & are unremarkable except as noted in Subjective Physical Exam Constitutional: WD/WN, vitals as above Eyes: PERRL, conjunctivae normal, anicteric sclerae Respiratory: normal respiratory effort, lungs clear to auscultation Cardiovascular: RRR, no murmur, no edema Gastrointestinal (Abdomen): Inspection/Auscultation: abdomen normal to inspection and normal bowel sounds; abdomen not distended Per cussion/Palpation: + abdomen tender (slight TTP in the RLQ ) and abdomen soft; no guarding and abdomen not rigid Musculoskeletal: Head/Neck/Chest: normocephalic and head atraumatic Skin: no rashes, warm and dry Neurologic: PERRL, EOMI, accommodation nl, no face palsy, no dysarthria Psychiatric: A+Ox3, euthymic affect Genitourinary: no CVA tenderness Results & Data Results & Data ([facility]) Vital Signs (Past 12 Hours) Vital Signs Temp Pulse Resp BP Pulse Ox 02/21/21 21:05 37.8 C H 02/21/21 21:01 89 14 97 02/21/21 21:00 90 15 133/78 97 02/21/21 20:40 91 H 14 96 02/21/21 20:30 76 18 96 02/21/21 20:01 92 H 18 97 02/21/21 20:00 91 H 16 153/87 H 98 02/21/21 19:34 93 H 17 157/93 H 97 02/21/21 19:30 94 H 16 02/21/21 17:00 37.6 C H 102 H 17 175/87 H 99 Laboratory Results Laboratory Results - last 24 hr 02/21/21 02/21/21 02/21/21 19:20 19:20 19:20 WBC 9.39 RBC 4.26 Hgb 13.3 Hct 39.2 MCV 92.0 MCH 31.2 MCHC 33.9 RDW Std Deviation 45.1 RDW Coeff of Emiliano 13.4 Plt Count 283 MPV 10.2 Immature Gran % (Auto) 0.3 Neut % (Auto) 81.7 Lymph % (Auto) 8.7 [place] % (Auto) 8.6 Eos % (Auto) 0.7 Baso % (Auto) 0.0 Neut # (Auto) 7.66 H Lymph # (Auto) 0.82 L [place] # (Auto) 0.81 H Eos # (Auto) 0.07 Baso # (Auto) 0.00 Immature Gran # (Auto) 0.03 H PT 9.8 INR 1.0 APTT 29.1 PTT Ratio 1.1 Sodium 134 L Potassium 3.8 Chloride 103 Carbon Dioxide 26 Anion Gap 5.0 BUN 16 Creatinine 1.22 H Est Cr Clr Drug Dosing Not Reportable Est GFR ( Amer) 56.2 Est GFR (Non-Af Amer) 48.5 BUN/Creatinine Ratio 13.0 Glucose 118 H Lactate Calcium 10.4 H Magnesium 2.0 Total Bilirubin 1.3 H AST 13 L ALT 28 Alkaline Phosphatase 149 H Troponin I < 0.015 Total Protein 7.6 Albumin 3.6 Globulin 4.0 Albumin/Globulin Ratio 0.9 Procalcitonin Urine Color Urine Appearance Urine pH Ur Specific [place] Urine Protein Urine Glucose (UA) Urine Ketones Urine Blood Urine Nitrite Urine Bilirubin Urine Urobilinogen Ur Leukocyte Esterase Urine WBC (Auto) Urine RBC (Auto) U Hyaline Cast (Auto) U Epithel Cells (Auto) Urine Bacteria (Auto) COVID-19 Eval Order SARS-CoV-2 (PCR) Influenza Type A (PCR) Influenza Type B (PCR) RSV (RT-PCR) 02/21/21 02/21/21 02/21/21 19:20 19:20 19:32 WBC RBC Hgb Hct MCV MCH MCHC RDW Std Deviation RDW Coeff of Emiliano Plt Count MPV Immature Gran % (Auto) Neut % (Auto) Lymph % (Auto) [place] % (Auto) Eos % (Auto) Baso % (Auto) Neut # (Auto) Lymph # (Auto) [place] # (Auto) Eos # (Auto) Baso # (Auto) Immature Gran # (Auto) PT INR APTT PTT Ratio Sodium Potassium Chloride Carbon Dioxide Anion Gap BUN Creatinine Est Cr Clr Drug Dosing Est GFR ( Amer) Est GFR (Non-Af Amer) BUN/Creatinine Ratio Glucose Lactate 1.2 Calcium Magnesium Total Bilirubin AST ALT Alkaline Phosphatase Troponin I Total Protein Albumin Globulin Albumin/Globulin Ratio Procalcitonin 0.05 Urine Color Yellow Urine Appearance Turbid A Urine pH >= 9.0 H Ur Specific [place] 1.017 Urine Protein Negative Urine Glucose (UA) Negative Urine Ketones Negative Urine Blood 3+ H Urine Nitrite Negative Urine Bilirubin Negative Urine Urobilinogen Negative Ur Leukocyte Esterase Negative Urine WBC (Auto) 1-5 Urine RBC (Auto) >30 H U Hyaline Cast (Auto) 1-5 U Epithel Cells (Auto) 5-10 H Urine Bacteria (Auto) Negative COVID-19 Eval Order SARS-CoV-2 (PCR) Influenza Type A (PCR) Influenza Type B (PCR) RSV (RT-PCR) 02/21/21 02/21/21 20:06 20:06 WBC RBC Hgb Hct MCV MCH MCHC RDW Std Deviation RDW Coeff of Emiliano Plt Count MPV Immature Gran % (Auto) Neut % (Auto) Lymph % (Auto) [place] % (Auto) Eos % (Auto) Baso % (Auto) Neut # (Auto) Lymph # (Auto) [place] # (Auto) Eos # (Auto) Baso # (Auto) Immature Gran # (Auto) PT INR APTT PTT Ratio Sodium Potassium Chloride Carbon Dioxide Anion Gap BUN Creatinine Est Cr Clr Drug Dosing Est GFR ( Amer) Est GFR (Non-Af Amer) BUN/Creatinine Ratio Glucose Lactate Calcium Magnesium Total Bilirubin AST ALT Alkaline Phosphatase Troponin I Total Protein Albumin Globulin Albumin/Globulin Ratio Procalcitonin Urine Color Urine Appearance Urine pH Ur Specific [place] Urine Protein Urine Glucose (UA) Urine Ketones Urine Blood Urine Nitrite Urine Bilirubin Urine Urobilinogen Ur Leukocyte Esterase Urine WBC (Auto) Urine RBC (Auto) U Hyaline Cast (Auto) U Epithel Cells (Auto) Urine Bacteria (Auto) COVID-19 Eval Order CovFluRsv at [facility] SARS-CoV-2 (PCR) NEGATIVE Influenza Type A (PCR) Negative Influenza Type B (PCR) Negative RSV (RT-PCR) Negative Diagnostic Findings CT SCAN OF THE ABDOMEN AND PELVIS WITH IV CONTRAST CLINICAL HISTORY: Flank pain. Nephrolithiasis. Fever. COMPARISON STUDY: Abdominal CT dated 02/19/2021. TECHNIQUE: Following the IV administration of 92 cc of Optiray 320, CT scan of the abdomen and pelvis is performed from the lung bases to the proximal femora. Images are reviewed in the axial, sagittal, and coronal planes. IV contrast was administered without complication. A dose lowering technique was utilized adhering to the principles of ALARA. CT DOSE: 742.50 mGy.cm FINDINGS: Lung bases: The heart is normal in size noting trace pericardial effusion. The lung bases are clear noting dependent atelectasis. Liver: The contrast-enhanced liver is normal in size, contour, and attenuation. There is no intrahepatic biliary ductal dilatation. The hepatic veins and portal veins are patent. Gallbladder: Unremarkable. Spleen: Normal in size and attenuation. Pancreas: Moderately atrophic and grossly unremarkable. Adrenal glands: Unremarkable. Kidneys: The right kidney is edematous. The contrast enhanced kidneys are normal in size. There is an 8 mm obstructing calculus protruding from the right vesicoureteral junction seen on image #[id number]. This causes moderate right hydroureteronephrosis. There is associated right-sided perinephric and periureteric stranding. Minimal urothelial thickening is noted in the right ureter. There is heterogeneously diminished enhancement of the right kidney as compared to the left. The left kidney enhances homogeneously. No additional right renal calculi are identified on this contrast-enhanced examination. There are least 2 nonobstructing left kidney stones measuring up to 3 mm. There is no left-sided hydronephrosis. Abdominal vasculature: The abdominal aorta is normal in course and caliber. Bowel: There is no bowel obstruction. Mild fecal retention is noted throughout the colon. A 1.4 cm duodenal lipoma is incidentally noted. The appendix is well-visualized and normal. Peritoneum: There is no intraperitoneal free air or abdominal ascites. Lymphadenopathy: None. Pelvic viscera: The bladder, uterus, and adnexa are normal as visualized. Skeletal structures: Hemangiomas are incidentally noted in the bodies of T11 and L3. No lytic or blastic lesions are seen. IMPRESSION: 1. There is unchanged appearance of an 8 mm obstructing calculus protruding from the right vesicoureteral junction as compared to 02/19/2021. This causes moderate right hydroureteronephrosis. 2. Nonobstructing left renal calculi as above. 3. There is minimal urothelial thickening and enhancement noted in the right ureter as well as heterogeneously diminished enhancement of the right kidney as compared to the left. This is likely related to obstruction/hydronephrosis. Correlate clinically for evidence of superimposed urinary tract infection. 4. Additional findings as above. Medications Administered Current Inpatient Medications Acetaminophen (Acetaminophen 325 Mg Tab) 650 mg PO Q4H PRN PRN Reason: pain/fever Stop: 03/23/21 23:24 Clonazepam (Clonazepam 0.5 Mg Tab) 0.5 mg PO DAILY PRN PRN Reason: Anxiety Stop: 03/23/21 23:24 Escitalopram Oxalate (Escitalopram Oxalate 10 Mg Tab) 10 mg PO QAM [facility] Stop: 03/24/21 08:59 Lactated Ringer's (Lr) 1,000 mls @ 150 mls/hr IV .Q6H40M [facility] Stop: 02/22/21 12:44 Ceftriaxone Sodium 2,000 mg/ (Dextrose) 70 mls @ 100 mls/hr IV Q24H [facility]; Protocol Stop: 03/04/21 00:00 Last Infusion: 02/22/21 00:44 Dose: Infused Documented by: Ketorolac Tromethamine (Ketorolac Tromethamine 15 Mg/Ml Vial) 15 mg IV Q6H PRN PRN Reason: Pain & Pre PT Stop: 02/26/21 23:24 Miscellaneous (Vyvanse~Order Awaiting Action) 1 ea N/A QS [facility] Stop: 03/24/21 07:59 Morphine Sulfate (Morphine Sulfate 2 Mg/Ml Carp) 2 mg IV Q3H PRN PRN Reason: Pain (1,2,3,4,5) & Pre PT Stop: 03/07/21 23:24 Morphine Sulfate (Morphine Sulfate 4 Mg/Ml 1 Ml Carp\Vial) 4 mg IV Q3H PRN PRN Reason: Pain (6,7,8,9,10) Stop: 03/07/21 23:24 Ondansetron HCl (Ondansetron Inj 2 Mg/Ml 2 Ml Vial) 4 mg IV Q6H PRN PRN Reason: Nausea Stop: 03/23/21 23:24 Tamsulosin HCl (Tamsulosin Hcl 0.4 Mg Cap) [facility]: 03/24/21 08:59 Code Status & VTE Plan VTE Prophylaxis Plan VTE Prophylaxis will be ordered: Yes Supervising Physician Co-Signing Physician Notes Patient seen and examined, chart reviewed, case discussed with Dr. Mayfield and I agree with his assessment and plan as above. Briefly, patient is a 60yo C female presenting with left flank pain. Found to have obstructing right sided nephrolithiasis, Reported fever On exam she is afebrile, HD stable, NAD Skin- no rash HEENT - NC/AT, PERRL, EOMI, MMM Heart - +S1/S2, regular, no m/r/g Lungs - CTA Abd = +BS, soft, NT, ND, no CVA tenderness Ext - No edema. Labs and images reviewed. Cr=1.22 Tbili=1.3 BD=897 Assessment/Plan: -IVF, pain control and enti-emetics, strain urine, continue Flomax -Ceftriaxone -Repeat LFTs - patient with elevated Tbili and AP -Remainder of plan as above Resident Activity Tracking Resident Involvement: Resident Care Provided Care Provided: Adult Hospital Medicine (1) Hydronephrosis Hydronephrosis type: with renal calculous obstruction Qualified Code(s): N13.2 - Hydronephrosis with renal and ureteral calculous obstruction (2) Leukocytosis Leukocytosis type: unspecified Qualified Code(s): D72.829 - Elevated white blood cell count, unspecified
[2021-02-21] MEDS ORDERED: TAMSULOSIN HCL 0.4 MG CAP PO ONE (22:13)
[2021-02-21] MEDS ORDERED: MoRPHine SULFATE 4 MG/ML 1 ML CARP\\VIAL IV PRN (23:25)
[2021-02-21] MEDS ORDERED: ONDANSETRON INJ 2 MG/ML 2 ML VIAL IV PRN (23:25)
[2021-02-21] MEDS ORDERED: KETOROLAC TROMETHAMINE 15 MG/ML VIAL IV PRN (23:25)
[2021-02-21] MEDS ORDERED: clonazePAM 0.5 MG TAB PO PRN (23:25)
[2021-02-21] MEDS ORDERED: MoRPHine SULFATE 2 MG/ML CARP IV PRN (23:25)
[2021-02-22] MEDS: cefTRIAXone SODIUM 2,000 MG in DEXTROSE 5% 50 ML IV SCH ×2 (00:01→23:35)
[2021-02-22] MEDS: LACTATED RINGER'S 1,000 ML IV SCH ×2 (01:16→08:51)
--- NOTE | 2021-02-22 04:15 | Billing Data ---
Date of Service February 21, 2021 Coding Level of Care Code 64889 Initial Inpt Care Lvl 2
[2021-02-22 08:40] LABS: Eosinophils % (auto) 3.4 %; Hematocrit (blood only) 35.2 % (37-47); Immature Granulocytes # (auto) 0.03 K/uL (0.00-0.02); Immature Granulocytes % (auto) 0.5 %; Lymphocytes # (auto) 1.53 K/uL (1.2-3.4); Lymphocytes % (auto) 25.9 %; Mean Corpuscular Hemoglobin 31.4 pg (25-34); Mean Corpuscular Hgb Conc 34.1 g/dL (32-36); Mean Corpuscular Volume 92.1 fL (80-100); Mean Platelet Volume 9.9 fL (7.4-10.4); Monocytes # (auto) 0.77 K/uL (0.11-0.59); Neutrophils # (auto) 3.38 K/uL (1.4-6.5); Neutrophils % (auto) 57.2 %; Platelet Count 264 K/uL (130-400); RDW Coefficient of Variation 13.8 % (11.5-14.5); RDW Standard Deviation 46.4 fL (36.4-46.3); Red Blood Count 3.82 M/uL (4.2-5.4); White Blood Count 5.91 K/uL (4.8-10.8)
--- NOTE | 2021-02-22 08:41 | Urology Consultation ---
Date of Consultation February 22, 2021 Assessment & Plan (1) Right ureteral calculus: (2) Hydronephrosis: 60 yo F admitted with right flank pain secondary to 8 mm obstructing right ureteral stone, hydronephrosis, and suspected UTI. - Hospital course, imaging, and past medical/surgical hx reviewed - Afebrile, VSS, nontoxic, lab work reviewed - creatinine increased to 1.22 yesterday (today's pending), WBC 5.91 - Urine and blood cultures pending - continue IV antibiotics - follow cultures - Discussed options for stone management including trial of passage vs surgical intervention - She would like to proceed with surgical intervention today - Keep NPO - Strain urine Findings reviewed with Dr. Damon. Given her right flank pain and elevated creatinine in the context of an obstructing 8 mm right ureteral stone, will proceed with OR for cystoscopy, right nephroureteroscopy, possible stone treatment and possible right stent placement. Risks and benefits to be reviewed with patient by Dr. Damon. OR notified. Preoperative CXR and EKG on chart. COVID testing negative. Will cover with IV Ceftriaxone preoperatively. Supervising Physician Co-Signing Physician Notes Agree with above, plan for cysto, R URS/LL, stent. Stone is very close to, or possibly already is, protruding into the bladder. History of Present Illness Reason for Consultation: Right ureteral stone, hydroureter, complex UTI Requesting Physician: Dr. Mayfield Attending Physician: Coni Nava MD History of Present Illness 60 year old female admitted with right flank pain secondary to 8 mm obstructing right ureteral stone, hydronephrosis, and suspected UTI. Past medical history reviewed and significant for nephrolithiasis, anxiety and depression, eczema, migraines. Patient presented to [facility] ED on 02/21/21 with acute right flank pain and fever in the setting of known right ureteral stone. She reports that she was diagnosed with right ureteral stone in early January, but underwent right meniscus repair first on 02/12. She presented to [facility] ED on 02/19 with worsening right flank pain, she was discharged to home to follow-up with her urologist at [facility]. She was evaluated by her [facility] urologist outpatient on 02/20 and was noted to have a temperature of 101 F and was advised to come to ED. She was afebrile on arrival. Lab work showed creatinine 1.22, WBC 9.39, and Hgb 13.3. UA showed > 30 RBCs and 5-10 epithelials, urine culture and blood cultures collected. CT A/P noted unchanged 8 mm obstructing calculus protruding from the right vesicoureteral junction, moderate right hydroureteronephrosis. She was admitted to hospital service and our service is consulted for right ureteral stone. Chart review: Afebrile Creatinine - 1.22 (02/21), 02/22 lab pending WBC - 5.91 Hgb - 12.0 Urine culture pending BCx pending On IV Ceftriaxone CT A/P 02/21 IMPRESSION: 1. There is unchanged appearance of an 8 mm obstructing calculus protruding from the right vesicoureteral junction as compared to 02/19/2021. This causes moderate right hydroureteronephrosis. 2. Nonobstructing left renal calculi as above. 3. There is minimal urothelial thickening and enhancement noted in the right ureter as well as heterogeneously diminished enhancement of the right kidney as compared to the left. This is likely related to obstruction/hydronephrosis. Correlate clinically for evidence of superimposed urinary tract infection. 4. Additional findings as above. Patient awake and resting in bed. Comfortable at present. Intermittent right flank pain radiating to right abdomen and groin. Denies stone passage. No dysuria or hematuria. No nausea or vomiting. No fever or chills. No CP or SOB. Reports history of kidney stones in the past. Reports spontaneous passage in the past x 1, no prior surgical interventions for stones. Recently seen by [facility] Urology. No additional concerns at present. Allergies Allergy/AdvReac Type Severity Reaction Status Date / Time Penicillins Allergy Mild RASH Verified 02/21/21 20:18 Sulfa (Sulfonamide Allergy Mild RASH Verified 02/21/21 20:18 Antibiotics) nickel AdvReac Mild SKIN Verified 02/21/21 20:18 IRRITATION Home Medications Medication Instructions Recorded Confirmed Type clonazepam 0.5 mg tablet 0.5 mg PO DAILY PRN 10/26/20 02/21/21 History escitalopram oxalate 10 mg tablet 10 mg PO QAM 10/26/20 02/21/21 History Restasis 1 drp OPHTHALMIC (EYE) Q12H 01/31/21 02/21/21 History Vyvanse 70 mg PO QAM 01/31/21 02/21/21 History oxycodone 5 mg PO Q6H PRN #10 tab 02/19/21 02/21/21 Rx tamsulosin [Flomax] 0.4 mg PO DAILY #10 cap 02/19/21 02/21/21 Rx clobetasol 1 applic TOPICAL DAILY 02/21/21 02/21/21 History Patient History Medical History Anxiety and depression Dry eyes Eczema Migraine Surgical History History of colonoscopy History of herniorrhaphy INGUINAL HERNIA History of open reduction and internal fixation (ORIF) procedure LEFT FIBIA (HARDWARE INTACT) [place] teeth removed Family History Other No family history of adverse response to anesthesia Social History Smoking Status: Never smoker Second Hand Exposure: No (when she was a child); Do You Dip or Chew Tobacco: No; Hx Alcohol Use: Yes Alcohol type: wine Hx Substance Use: No Preferred Language: Greek Communication Ability: Effective Baler Required: No Beliefs That Will Affect Care: None Current Living Situation: Spouse and Family Other Information That Helps Us Care for You: No Feels Safe at Home: Yes Safety Concerns: Feels Safe At This Time Assistive Devices: Brace/Splint/Immobilizer and Glasses Review of Systems Constitutional: as per Subjective / HPI Eyes: no problem reported Ear, Nose, Mouth, Throat: no problem reported Respiratory: no dyspnea Cardiovascular: no chest pain Gastrointestinal: as per Subjective / HPI Genitourinary: as per Subjective / HPI Musculoskeletal: +right leg immobilizer Integumentary: no problem reported Neurologic: no problem reported Physical Exam Constitutional: well developed and well nourished; no acute distress and not ill appearing Eyes: no scleral abnormality Neck: normal visual inspection Respiratory: normal respiratory effort and able to speak in complete sentences; no respiratory distress and no labored breathing Cardiovascular: Extremities: no pedal edema Gastrointestinal (Abdomen): Inspection/Auscultation: abdomen normal to inspection; abdomen not distended Percussion/Palpation: abdomen soft; abdomen nontender and no guarding Musculoskeletal: Head/Neck/Chest: normocephalic and head atraumatic + right leg immobilizer Skin: no rashes, warm and dry Neurologic: moves all extremities and awake Psychiatric: Orientation: alert and oriented x 3 Genitourinary: no CVA tenderness Results & Data ([facility]) Vital Signs (Past 12 Hours) Vital Signs Temp Pulse Pulse Resp BP BP Pulse Ox 02/22/21 07:29 36.5 C 77 16 123/70 94 02/21/21 23:45 36.9 C 83 20 136/73 97 02/21/21 23:25 36.9 C 83 20 136/73 97 02/21/21 23:01 93 H 15 95 02/21/21 23:00 89 20 137/72 95 02/21/21 22:31 86 16 94 02/21/21 22:30 87 15 152/68 H 95 02/21/21 22:01 85 16 95 02/21/21 22:00 85 14 130/75 96 02/21/21 21:31 95 H 17 96 02/21/21 21:30 97 H 13 125/76 96 02/21/21 21:05 37.8 C H 02/21/21 21:01 89 14 97 02/21/21 21:00 90 15 133/78 97 PG Care Time/CCT Total # of Minutes Spent Total Time Spent with Patient: Total time spent is greater than 50% in coordination of care (as documented) at patient's floor/unit and/or counseling patient: Coding Level of Care Code 33497 Inpt Consult Level 3 Diagnoses Right ureteral calculus N20.1 Hydronephrosis N13.2 Hydronephrosis type: with renal calculous obstruction (1) Hydronephrosis Hydronephrosis type: with renal calculous obstruction Qualified Code(s): N13.2 - Hydronephrosis with renal and ureteral calculous obstruction
[2021-02-22] MEDS: TAMSULOSIN HCL 0.4 MG CAP PO SCH (08:51)
[2021-02-22] MEDS: ESCITALOPRAM OXALATE 10 MG TAB PO SCH (08:52)
[2021-02-22 09:13] LABS: Alanine Aminotransferase 23 U/L (12-78); Albumin Level 2.9 gm/dl (3.4-5.0); Alkaline Phosphatase 120 U/L (45-117); Aspartate Aminotransferase 15 U/L (15-37); BUN Creatinine Ratio 15.2 (10-20); Bilirubin Direct < 0.1 mg/dl (0-0.2); Bilirubin,Total 0.7 mg/dl (0.2-1); Blood Urea Nitrogen 14 mg/dl (7-18); Calcium 10.1 mg/dl (8.5-10.1); Carbon Dioxide 27 mmol/L (21-32); Chloride 110 mmol/L (98-107); Creatinine Clr Calc Pharmacy 70.4 ml/min; Est GFR (Non-African American) 66.4; Glucose 100 mg/dl (70-99); Potassium 3.5 mmol/L (3.5-5.1); Sodium 141 mmol/L (136-145); Total Protein 6.3 gm/dl (6.4-8.2)
[2021-02-22] MEDS ORDERED: POLYETHYLENE (MIRALAX) 17 GM PACK PO PRN (09:17)
--- NOTE | 2021-02-22 09:29 | Medical Student Progress Note ---
Date of Service February 22, 2021 Assessment & Plan (1) Right ureteral calculus: Patient is a 60 year old female admitted for right flank pain with an 8 mm obstructing right distal ureteral stone, hydronephrosis and suspected UTI. Urine cultures pending, currently treated empirically with IV ceftriaxone. Cr increased from 0.99 to 1.2 yesterday. Patient is afebrile and nontoxic today. Pain is managed well with morphine and ketorolac tromethamine. Urology consulted, and patient would like to proceed with surgical intervention today. Keep NPO and continue to strain urine. Urology performed cystoscopy, right nephroureteroscopy, and were able to remove the stone. No stent placement was necessary. Patient prefers to stay overnight after the surgery. (2) Right nephrolithiasis: See above for management. Patient denies vitamin c supplementations or soda consumption. She does drink plain seltzer water but does not drink enough water throughout the day. She has a history of 1 kidney stones >5 years ago that passed spontaneously without surgical intervention. Possible UTI - empirically covered with IV ceftriaxone. waiting on urine cultures. UA showed ph >9, negative protein, ketones, nitrite, leuk esterase and bacteria. 3+ blood, 1-5 WBC, >30RBC, 1-5 hyaline casts. Patient has urinary frequency but no dysuria. Possible hyperparathyroidism Calcium on admission was 11, down to 10.1 today. PTH on 02/22 was high at 221.1 consistent with primary hyperparathyroidism. This could be the etiology of the multiple renal calculi (1 5-7 years prior, current obstructive calculus, and 2 non obstructive calculi in left kidney), and could contribute to psychiatric history of anxiety. There is special concern bone density problems due to patient's age and gender with hyperparathyroidism. Patient should get a parathyroid scan and be evaluated and treated outpatient for suspected hyperparathyroidism. Will refer to outpatient endocrinology. Admission and Anticipated Discharge Date Admission Date: February 21, 2021 Supervising Attestation Medical Student Supervision Note: I was personally present during medical student patient encounter and independently interviewed and examined the patient and verified the baxter history and physical, reviewed labs and image studies, discussed the case with Dyan Hernandez and agree with the findings and care plan. Right obstructive calculus with h/o recurrent nephrolithiasis - s/p calculus removal. Hyperparathyroidism - likely primary. check vitamin D level. outpatient endocrine eval. Hypercalcemia - sec to hyperparathyroidism. resolved with IV hydration. Possible UTI - IV ceftriaxone. Culture pending Subjective Patient is a 60 year old female with pmh of nephrolithiasis who presented to [facility] ED with 10/10 flank pain on 02/19 and was evaluated and found to have an 8 mm obstructing calculi in right distal ureter. At the ED she was given flomax and oxycodone to pass the stone at home and was discharged. She went to her urologist appointment at [facility] yesterday (02/21) and her temperature was 101F so she was instructed to come back to the ED. On admission, she had nausea, fevers, chills, flank pain and urinary urgency. She had had gross hematuria in the first 2 weeks of January but does not currently have hematuria. Of note, she also received her 2nd COVID vaccine on 02/20 but thinks she felt ill before the vaccine was administered. She also had a right knee meniscal repair 11 days ago and is currently in a leg brace. Her previous and only other kidney stone was 5-7 years ago and passed spontaneously without surgical intervention. Today, her pain is managed well with morphine and ketorolac. She does have some flank pain, urinary frequency and urgency. She denies nausea, vomiting, fever, chills, chest pain, SOB and dysuria. Review of Systems Constitutional: no fever and no chills Respiratory: no cough and no dyspnea Cardiovascular: no chest pain, no palpitations, no edema and no calf pain Gastrointestinal: + constipation; no diarrhea/loose stools and no melena Genitourinary: + urinary frequency, + urinary urgency and + flank pain; no dysuria Musculoskeletal: right thigh pain due to leg brace Neurologic: no syncope and no headache(s) Physical Exam Constitutional: WD/WN, vitals as above no acute distress Respiratory: normal respiratory effort, lungs clear to auscultation Cardiovascular: RRR, no murmur, no edema Musculoskeletal: leg brace on right leg due to meniscal surgery Psychiatric: A+Ox3, euthymic affect Results & Data ([facility]) Vital Signs (Past 12 Hours) Vital Signs Temp Pulse Pulse Resp BP BP Pulse Ox 02/22/21 07:29 36.5 C 77 16 123/70 94 02/21/21 23:45 36.9 C 83 20 136/73 97 02/21/21 23:25 36.9 C 83 20 136/73 97 02/21/21 23:01 93 H 15 95 02/21/21 23:00 89 20 137/72 95 02/21/21 22:31 86 16 94 02/21/21 22:30 87 15 152/68 H 95 02/21/21 22:01 85 16 95 02/21/21 22:00 85 14 130/75 96 02/21/21 21:31 95 H 17 96 02/21/21 21:30 97 H 13 125/76 96 Laboratory Results Laboratory Results - last 48 hr 02/21/21 02/21/21 02/21/21 19:20 19:20 19:20 WBC 9.39 RBC 4.26 Hgb 13.3 Hct 39.2 MCV 92.0 MCH 31.2 MCHC 33.9 RDW Std Deviation 45.1 RDW Coeff of Emiliano 13.4 Plt Count 283 MPV 10.2 Immature Gran % (Auto) 0.3 Neut % (Auto) 81.7 Lymph % (Auto) 8.7 [place] % (Auto) 8.6 Eos % (Auto) 0.7 Baso % (Auto) 0.0 Neut # (Auto) 7.66 H Lymph # (Auto) 0.82 L [place] # (Auto) 0.81 H Eos # (Auto) 0.07 Baso # (Auto) 0.00 Immature Gran # (Auto) 0.03 H PT 9.8 INR 1.0 APTT 29.1 PTT Ratio 1.1 Sodium 134 L Potassium 3.8 Chloride 103 Carbon Dioxide 26 Anion Gap 5.0 BUN 16 Creatinine 1.22 H Est Cr Clr Drug Dosing Not Reportable Est GFR ( Amer) 56.2 Est GFR (Non-Af Amer) 48.5 BUN/Creatinine Ratio 13.0 Glucose 118 H Lactate Calcium 10.4 H Magnesium 2.0 Total Bilirubin 1.3 H Direct Bilirubin AST 13 L ALT 28 Alkaline Phosphatase 149 H Troponin I < 0.015 Total Protein 7.6 Albumin 3.6 Globulin 4.0 Albumin/Globulin Ratio 0.9 Procalcitonin PTH Intact Urine Color Urine Appearance Urine pH Ur Specific [place] Urine Protein Urine Glucose (UA) Urine Ketones Urine Blood Urine Nitrite Urine Bilirubin Urine Urobilinogen Ur Leukocyte Esterase Urine WBC (Auto) Urine RBC (Auto) U Hyaline Cast (Auto) U Epithel Cells (Auto) Urine Bacteria (Auto) COVID-19 Eval Order SARS-CoV-2 (PCR) Influenza Type A (PCR) Influenza Type B (PCR) RSV (RT-PCR) 02/21/21 02/21/21 02/21/21 19:20 19:20 19:32 WBC RBC Hgb Hct MCV MCH MCHC RDW Std Deviation RDW Coeff of Emiliano Plt Count MPV Immature Gran % (Auto) Neut % (Auto) Lymph % (Auto) [place] % (Auto) Eos % (Auto) Baso % (Auto) Neut # (Auto) Lymph # (Auto) [place] # (Auto) Eos # (Auto) Baso # (Auto) Immature Gran # (Auto) PT INR APTT PTT Ratio Sodium Potassium Chloride Carbon Dioxide Anion Gap BUN Creatinine Est Cr Clr Drug Dosing Est GFR ( Amer) Est GFR (Non-Af Amer) BUN/Creatinine Ratio Glucose Lactate 1.2 Calcium Magnesium Total Bilirubin Direct Bilirubin AST ALT Alkaline Phosphatase Troponin I Total Protein Albumin Globulin Albumin/Globulin Ratio Procalcitonin 0.05 PTH Intact Urine Color Yellow Urine Appearance Turbid A Urine pH >= 9.0 H Ur Specific [place] 1.017 Urine Protein Negative Urine Glucose (UA) Negative Urine Ketones Negative Urine Blood 3+ H Urine Nitrite Negative Urine Bilirubin Negative Urine Urobilinogen Negative Ur Leukocyte Esterase Negative Urine WBC (Auto) 1-5 Urine RBC (Auto) >30 H U Hyaline Cast (Auto) 1-5 U Epithel Cells (Auto) 5-10 H Urine Bacteria (Auto) Negative COVID-19 Eval Order SARS-CoV-2 (PCR) Influenza Type A (PCR) Influenza Type B (PCR) RSV (RT-PCR) 02/21/21 02/21/21 02/22/21 20:06 20:06 08:20 WBC 5.91 RBC 3.82 L Hgb 12.0 Hct 35.2 L MCV 92.1 MCH 31.4 MCHC 34.1 RDW Std Deviation 46.4 H RDW Coeff of Emiliano 13.8 Plt Count 264 MPV 9.9 Immature Gran % (Auto) 0.5 Neut % (Auto) 57.2 Lymph % (Auto) 25.9 [place] % (Auto) 13.0 Eos % (Auto) 3.4 Baso % (Auto) 0.0 Neut # (Auto) 3.38 Lymph # (Auto) 1.53 [place] # (Auto) 0.77 H Eos # (Auto) 0.20 Baso # (Auto) 0.00 Immature Gran # (Auto) 0.03 H PT INR APTT PTT Ratio Sodium Potassium Chloride Carbon Dioxide Anion Gap BUN Creatinine Est Cr Clr Drug Dosing Est GFR ( Amer) Est GFR (Non-Af Amer) BUN/Creatinine Ratio Glucose Lactate Calcium Magnesium Total Bilirubin Direct Bilirubin AST ALT Alkaline Phosphatase Troponin I Total Protein Albumin Globulin Albumin/Globulin Ratio Procalcitonin PTH Intact Urine Color Urine Appearance Urine pH Ur Specific [place] Urine Protein Urine Glucose (UA) Urine Ketones Urine Blood Urine Nitrite Urine Bilirubin Urine Urobilinogen Ur Leukocyte Esterase Urine WBC (Auto) Urine RBC (Auto) U Hyaline Cast (Auto) U Epithel Cells (Auto) Urine Bacteria (Auto) COVID-19 Eval Order CovFluRsv at [facility] SARS-CoV-2 (PCR) NEGATIVE Influenza Type A (PCR) Negative Influenza Type B (PCR) Negative RSV (RT-PCR) Negative 02/22/21 02/22/21 08:20 08:20 WBC RBC Hgb Hct MCV MCH MCHC RDW Std Deviation RDW Coeff of Emiliano Plt Count MPV Immature Gran % (Auto) Neut % (Auto) Lymph % (Auto) [place] % (Auto) Eos % (Auto) Baso % (Auto) Neut # (Auto) Lymph # (Auto) [place] # (Auto) Eos # (Auto) Baso # (Auto) Immature Gran # (Auto) PT INR APTT PTT Ratio Sodium 141 D Potassium 3.5 Chloride 110 H Carbon Dioxide 27 Anion Gap 4.0 BUN 14 Creatinine 0.94 Est Cr Clr Drug Dosing 70.4 Est GFR ( Amer) 77.0 Est GFR (Non-Af Amer) 66.4 BUN/Creatinine Ratio 15.2 Glucose 100 H Lactate Calcium 10.1 Magnesium Total Bilirubin 0.7 D Direct Bilirubin < 0.1 AST 15 ALT 23 Alkaline Phosphatase 120 H Troponin I Total Protein 6.3 L Albumin 2.9 L Globulin Albumin/Globulin Ratio Procalcitonin PTH Intact 221.1 H Urine Color Urine Appearance Urine pH Ur Specific [place] Urine Protein Urine Glucose (UA) Urine Ketones Urine Blood Urine Nitrite Urine Bilirubin Urine Urobilinogen Ur Leukocyte Esterase Urine WBC (Auto) Urine RBC (Auto) U Hyaline Cast (Auto) U Epithel Cells (Auto) Urine Bacteria (Auto) COVID-19 Eval Order SARS-CoV-2 (PCR) Influenza Type A (PCR) Influenza Type B (PCR) RSV (RT-PCR)
[2021-02-22] MEDS ORDERED: HYDROmorphone INJ 1 MG/ML SYRINGE IV PRN ×2 (10:19→10:34)
[2021-02-22] MEDS ORDERED: ATROPINE SULFATE 0.1 MG/ML 10ML SYR IV PRN ×2 (10:19→10:34)
[2021-02-22] MEDS ORDERED: ePHEDrine sulfate 50 MG/ML AMP IV PRN ×2 (10:19→10:34)
[2021-02-22] MEDS ORDERED: ONDANSETRON INJ 2 MG/ML 2 ML VIAL IV PRN ×2 (10:19→10:34)
[2021-02-22] MEDS ORDERED: fentaNYL citrate 100 MCG/2 ML VIAL IV PRN ×2 (10:19→10:34)
--- NOTE | 2021-02-22 10:19 | Anesthesiology Consultation ---
Date of Service February 22, 2021 Assessment & Plan (1) Encounter for pre-operative examination: History Surgery Operation Date: 02/22/21 13:15 Proposed Procedures p Cystoscopy, Possible Laser Lithotripsy, Right Stent Placment - Godfrey Damon MD Height/Weight Height: 5 ft 4 in Weight: 90.9 kg Allergies Allergy/AdvReac Type Severity Reaction Status Date / Time Penicillins Allergy Mild RASH Verified 02/21/21 20:18 Sulfa (Sulfonamide Allergy Mild RASH Verified 02/21/21 20:18 Antibiotics) nickel AdvReac Mild SKIN Verified 02/21/21 20:18 IRRITATION Medications Home Medications Medication Instructions Recorded Confirmed Last Taken clonazepam 0.5 mg tablet 0.5 mg PO DAILY PRN 10/26/20 02/21/21 02/11/21 escitalopram oxalate 10 mg tablet 10 mg PO QAM 10/26/20 02/21/21 02/12/21 05:45 Restasis 1 drp OPHTHALMIC (EYE) Q12H 01/31/21 02/21/21 02/12/21 05:45 Vyvanse 70 mg PO QAM 01/31/21 02/21/21 02/11/21 oxycodone 5 mg PO Q6H PRN #10 tab 02/19/21 02/21/21 02/21/21 06:00 tamsulosin [Flomax] 0.4 mg PO DAILY #10 cap 02/19/21 02/21/21 Unknown clobetasol 1 applic TOPICAL DAILY 02/21/21 02/21/21 Unknown Active Medications Generic Name Dose Route Start Last Admin Trade Name Macq PRN Reason Stop Dose Admin Escitalopram Oxalate 10 mg 02/22/21 09:00 02/22/21 08:52 Escitalopram Oxalate 10 Mg Tab PO 03/24/21 08:59 10 mg QAM NAGA Administration Lactated Ringer's 1,000 mls @ 150 mls/hr 02/21/21 23:25 02/22/21 08:51 Lr IV 02/22/21 12:44 Not Given .Q6H40M NAGA Ceftriaxone Sodium 2,000 mg/ 70 mls @ 100 mls/hr 02/22/21 00:00 02/22/21 00:44 Dextrose IV 03/04/21 00:00 Infused Q24H NAGA Infusion Protocol Ketorolac Tromethamine 15 mg 02/21/21 23:25 02/22/21 03:34 Ketorolac Tromethamine 15 Mg/Ml Vial IV 02/26/21 23:24 15 mg Q6H PRN Administration Pain & Pre PT Miscellaneous 1 ea 02/22/21 08:00 02/22/21 08:51 Vyvanse~Order Awaiting Action N/A 03/24/21 07:59 Not Given QS NAGA Tamsulosin HCl 0.4 mg 02/22/21 09:00 02/22/21 08:51 Tamsulosin Hcl 0.4 Mg Cap PO 03/24/21 08:59 0.4 mg QAM NAGA Administration Past Medical History Medical History Anxiety and depression Dry eyes Eczema Migraine Past Family History Family History Other No family history of adverse response to anesthesia Past Surgical History Surgical History History of colonoscopy History of herniorrhaphy INGUINAL HERNIA History of open reduction and internal fixation (ORIF) procedure LEFT FIBIA (HARDWARE INTACT) [place] teeth removed Social History Smoking Status: Never smoker Do You Dip or Chew Tobacco: No Hx Alcohol Use: Yes Alcohol type: wine alcohol intake frequency: holidays/special occasions only Hx Substance Use: No substance use type: does not use Physical Exam Vital Signs Last Vital Signs Temp 36.5 C 02/22/21 07:29 Pulse 77 02/22/21 07:29 Resp 16 02/22/21 07:29 BP 123/70 02/22/21 07:29 Pulse Ox 94 02/22/21 07:29 Testing Laboratory Results 02/22/21 08:20 02/22/21 08:20 PT 9.8 Seconds (9.0-12.0) 02/21/21 19:20 INR 1.0 (0.9-1.1) 02/21/21 19:20 APTT 29.1 Seconds (21.0-31.0) 02/21/21 19:20 Urine Color Yellow 02/21/21 19:20 Urine Appearance Turbid (Clear) A 02/21/21 19:20 Urine pH >= 9.0 (4.5-7.5) H 02/21/21 19:20 Ur Specific [place] 1.017 (1.000-1.030) 02/21/21 19:20 Urine Protein Negative (Negative) 02/21/21 19:20 Urine Glucose (UA) Negative (Negative) 02/21/21 19:20 Urine Ketones Negative (Negative) 02/21/21 19:20 Urine Nitrite Negative (Negative) 02/21/21 19:20 Ur Leukocyte Esterase Negative (Negative) 02/21/21 19:20 Urine WBC (Auto) 1-5 /hpf (0-5) 02/21/21 19:20 Urine RBC (Auto) >30 /hpf (0-4) H 02/21/21 19:20 U Hyaline Cast (Auto) 1-5 /lpf (0-5) 02/21/21 19:20 U Epithel Cells (Auto) 5-10 /lpf (0-5) H 02/21/21 19:20 Urine Bacteria (Auto) Negative (Negative) 02/21/21 19:20
[2021-02-22] MEDS ORDERED: ONDANSETRON INJ 2 MG/ML 2 ML VIAL ONE (10:29)
[2021-02-22] MEDS ORDERED: PROPOFOL IV EMULSION 10 MG/ML 20 ML VIAL IV ONE (10:29)
[2021-02-22] MEDS ORDERED: fentaNYL citrate 100 MCG/2 ML VIAL ONE (10:29)
[2021-02-22] MEDS ORDERED: LIDOCAINE HCL 2% 2 ML VIAL/AMP(20MG/ML) INFIL ONE (10:29)
[2021-02-22] MEDS ORDERED: KETOROLAC 30 MG/ML VIAL ONE (10:52)
--- NOTE | 2021-02-22 11:09 | Operative Report ---
PG Post Operative Report Pre & Post Diagnosis Operation Date: 02/22/21 13:15 Pre: Right ureteral calculus Post: Right ureteral calculus I identified the patient and participated in the time-out.: Yes Procedure Operation Date: 02/22/21 13:15 Actual Procedures p Cystoscopy, Right Ureteroscopy, Right Ureteral Stone Extraction - Godfrey Damon MD Surgeon Junior Damon MD Garment Presser none Estimated Blood Loss 0 Findings Consistent with Post-Op Diagnosis Specimens stone for chemical analysis Description of Procedure The patient was identified in the preoperative holding area, appropriate informed consents were reviewed and completed and the patient was transferred to the operative suite. Upon arrival, appropriate antibiotics and anesthesia were administered and the patient was placed in dorsal lithotomy position and prepped and draped in sterile fashion. To begin the case I passed a 22 Gu[place]ese cystoscope with 30 degree lens. Inspection revealed a stone protruding from the right ureteral orifice. There were no other stones within the bladder. Utilizing a 5 [place]yanese open-ended catheter I was able to help dislodge and extract the stone. Fluoro did not reveal any retained fragments, but as an additional precaution I advanced a semi rigid ureteroscope through the ureter. There were no additional stones and there was no significant inflammation. I elected to leave her without a stent. Her bladder was drained, the equipment removed and the case concluded. The stone was passed off the table for chemical analysis. I attest to the content of the Intraoperative Record and any orders documented therein. Any exceptions are noted below.
--- NOTE | 2021-02-22 11:22 | Fluoroscopy Report ---
FL KUB CLINICAL HISTORY: RT STENT COMPARISON STUDY: CT of the abdomen and pelvis February 21, 2021. FLUOROSCOPY TIME: 2 seconds. FLUOROSCOPIC IMAGES: 1. FINDINGS: Fluoroscopy was provided during cystoscopy with right sided stone extraction. IMPRESSION: Fluoroscopy provided during cystoscopy with right-sided stone extraction. ACT 112: Negative or not required by law. Electronically signed by: Shawn Davis M.D. 02/22/2021 11:20 AM
--- NOTE | 2021-02-22 11:45 | Anesthesiology Progress Note ---
Date of Service February 22, 2021 Anesthesia Post Procedure Vital Signs Vital Signs: Temp Pulse Pulse Pulse Resp BP BP 02/22/21 11:40 36.8 C 69 14 122/71 02/22/21 11:30 72 14 133/72 02/22/21 11:20 76 14 130/73 02/22/21 11:10 36.8 C 73 14 130/75 02/22/21 10:20 36.6 C 78 18 151/78 H 02/22/21 07:29 36.5 C 77 16 123/70 02/21/21 23:45 36.9 C 83 20 136/73 02/21/21 23:25 36.9 C 83 20 136/73 02/21/21 23:01 93 H 15 02/21/21 23:00 89 20 137/72 02/21/21 22:31 86 16 02/21/21 22:30 87 15 152/68 H 02/21/21 22:01 85 16 02/21/21 22:00 85 14 130/75 02/21/21 21:31 95 H 17 02/21/21 21:30 97 H 13 125/76 02/21/21 21:05 37.8 C H 02/21/21 21:01 89 14 02/21/21 21:00 90 15 133/78 02/21/21 20:40 91 H 14 02/21/21 20:30 76 18 02/21/21 20:01 92 H 18 02/21/21 20:00 91 H 16 153/87 H 02/21/21 19:34 93 H 17 157/93 H 02/21/21 19:30 94 H 16 02/21/21 17:00 37.6 C H 102 H 17 175/87 H Pulse Ox 02/22/21 11:40 94 02/22/21 11:30 94 02/22/21 11:20 94 02/22/21 11:10 97 02/22/21 10:20 97 02/22/21 07:29 94 02/21/21 23:45 97 02/21/21 23:25 97 02/21/21 23:01 95 02/21/21 23:00 95 02/21/21 22:31 94 02/21/21 22:30 95 02/21/21 22:01 95 02/21/21 22:00 96 02/21/21 21:31 96 02/21/21 21:30 96 02/21/21 21:05 02/21/21 21:01 97 02/21/21 21:00 97 02/21/21 20:40 96 02/21/21 20:30 96 02/21/21 20:01 97 02/21/21 20:00 98 02/21/21 19:34 97 02/21/21 19:30 02/21/21 17:00 99 Pain Intensity Bilateral Generalized: Pain Intensity: 1 Transfer of Care Handoff Completed per policy Notes Mental Status: alert / awake / arousable and participated in evaluation Patient Amnestic to Procedure: Yes Nausea / Vomiting: adequately controlled Pain: adequately controlled Airway Patency, RR, SpO2: stable & adequate BP & HR: stable & adequate Hydration State: stable & adequate Anesthetic Complications: no major complications apparent and Pt Satisfied with anesthetic care
[2021-02-22] MEDS: ACETAMINOPHEN 325 MG TAB PO PRN ×3 (12:05→23:35)
--- NOTE | 2021-02-22 15:03 | Electrocardiogram Report ---
Test Reason : Blood Pressure : / mmHG Vent. Rate : 091 BPM Atrial Rate : 091 BPM P-R Int : 146 ms QRS Dur : 078 ms QT Int : 322 ms P-R-T Axes : 061 048 062 degrees QTc Int : 396 ms Normal sinus rhythm Nonspecific ST abnormality Abnormal ECG When compared with ECG of 18-APR-2015 14:24, No significant change was found Confirmed by Lenny Mendez ([id number]) on 02/22/2021 3:02:57 PM Referred By: REFERRED SELF Confirmed By:Lenny Mendez
[2021-02-22] MEDS ORDERED: ACETAMINOPHEN 325 MG TAB PO STA (20:13)
[2021-02-23 07:59] LABS: Alanine Aminotransferase 34 U/L (12-78); Albumin Level 2.7 gm/dl (3.4-5.0); Alkaline Phosphatase 130 U/L (45-117); Aspartate Aminotransferase 24 U/L (15-37); Bilirubin Direct < 0.1 mg/dl (0-0.2); Bilirubin,Total 0.7 mg/dl (0.2-1); Total Protein 6.4 gm/dl (6.4-8.2)
[2021-02-23] MEDS: ACETAMINOPHEN 325 MG TAB PO PRN (09:03)
[2021-02-23] MEDS: TAMSULOSIN HCL 0.4 MG CAP PO SCH (09:03)
--- NOTE | 2021-02-23 09:03 | Anesthesiology Progress Note ---
Date of Service February 23, 2021 Anesthesia Post Procedure Vital Signs Vital Signs: Temp Pulse Pulse Resp BP Pulse Ox 02/23/21 07:49 36.5 C 86 18 131/78 96 02/23/21 03:38 36.9 C 81 16 109/65 95 02/22/21 23:28 37.9 C H 97 H 16 124/71 95 02/22/21 21:31 38.8 C H 02/22/21 19:58 39.4 C H 100 H 20 154/78 H 95 02/22/21 18:37 37.4 C 80 16 173/84 H 91 02/22/21 15:33 36.7 C 67 16 156/80 H 97 02/22/21 14:02 36.9 C 82 16 125/71 94 02/22/21 13:11 36.7 C 82 16 132/66 92 02/22/21 12:44 36.8 C 80 16 124/73 94 02/22/21 12:00 37.4 C 76 14 118/67 94 02/22/21 11:45 36.8 C 69 14 130/69 94 02/22/21 11:40 36.8 C 69 14 122/71 94 02/22/21 11:30 72 14 133/72 94 02/22/21 11:20 76 14 130/73 94 02/22/21 11:10 36.8 C 73 14 130/75 97 02/22/21 10:20 36.6 C 78 18 151/78 H 97 Pain Intensity Bilateral Generalized: Pain Intensity: 0 Notes Mental Status: alert / awake / arousable and participated in evaluation Patient Amnestic to Procedure: Yes Nausea / Vomiting: adequately controlled Pain: adequately controlled Airway Patency, RR, SpO2: stable & adequate BP & HR: stable & adequate Hydration State: stable & adequate Anesthetic Complications: no major complications apparent
[2021-02-23] MEDS: ESCITALOPRAM OXALATE 10 MG TAB PO SCH (09:04)
--- NOTE | 2021-02-23 09:28 | Urology Progress Note ---
Date of Service February 23, 2021 Assessment & Plan (1) Right ureteral calculus: 60 yo F POD #1 s/p Cystoscopy, Right Ureteroscopy, Right Ureteral Stone Extraction with Dr. Damon. - Doing well at present - Fever (39.4) last night, but afebrile and feeling improved this AM - No new labs at time of exam - recommend repeat prior to discharge - Reviewed operative course with patient - stone was extracted and no ureteral stent in place - Recommend course of antibiotics upon discharge when medically stable - discussed with hospitalist - Expected clinical course reviewed, all questions answered - Will arrange appropriate outpatient follow-up with our service Thank you for allowing us to participate in the acute care of Ms. Starr. Please reconsult us with additional questions, concerns or changes in patient status. Admission and Anticipated Discharge Date Admission Date: February 21, 2021 Subjective 60 yo F POD #1 s/p Cystoscopy, Right Ureteroscopy, Right Ureteral Stone Extraction with Dr. Damon. Patient awake and sitting up in bed Denies fever or chills at present Patient had fever yesterday, Tmax 39.4 @ 1958 Reports feeling better this morning, though "worn out" Denies flank or suprapubic pain Notes some MSK discomfort that she attributes to her brace Tolerating diet, no nausea or vomiting Reports BM yesterday Voiding without difficulty. No dysuria. Noted some hematuria yesterday, which has cleared. Chart review: Afebrile this morning, Tmax 39.4 on 02/22 @ 1958 UC&S all low counts probable skin evi BCx no growth x 24 hours On IV Ceftriaxone Stone analysis pending No additional concerns today. Review of Systems Constitutional: as per Subjective / HPI Gastrointestinal: as per Subjective / HPI Genitourinary: as per Subjective / HPI Physical Exam Constitutional: well developed and well nourished; no acute distress and not ill appearing Respiratory: normal respiratory effort and able to speak in complete sentences; no respiratory distress and no labored breathing Gastrointestinal (Abdomen): Inspection/Auscultation: abdomen normal to inspection; abdomen not distended Percussion/Palpation: abdomen soft; abdomen nontender and no guarding Musculoskeletal: Head/Neck/Chest: normocephalic and head atraumatic +RLE immobilizer Skin: no rashes, warm and dry Neurologic: moves all extremities and awake Psychiatric: Orientation: alert and oriented x 3 Genitourinary: no CVA tenderness Results & Data ([facility]) Vital Signs (Past 12 Hours) Vital Signs Temp Pulse Resp BP Pulse Ox 02/23/21 07:49 36.5 C 86 18 131/78 96 02/23/21 03:38 36.9 C 81 16 109/65 95 02/22/21 23:28 37.9 C H 97 H 16 124/71 95 02/22/21 21:31 38.8 C H PG Care Time/CCT Total # of Minutes Spent Total Time Spent with Patient: Total time spent is greater than 50% in coordination of care (as documented) at patient's floor/unit and/or counseling patient: Coding Level of Care Code 27435 Subseq Hosp Care Lvl 2 Diagnoses Right ureteral calculus N20.1
[2021-02-23] MEDS: VYVANSE PO SCH (10:36)
[2021-02-23] MEDS: VYVANSE 70 MG PO SCH (10:36)
[2021-02-23 12:49] LABS: Eosinophils # (auto) 0.21 K/uL (0-0.5); Eosinophils % (auto) 2.3 %; Hematocrit (blood only) 36.4 % (37-47); Hemoglobin 12.5 g/dL (12.0-16.0); Immature Granulocytes # (auto) 0.03 K/uL (0.00-0.02); Immature Granulocytes % (auto) 0.3 %; Lymphocytes # (auto) 2.24 K/uL (1.2-3.4); Lymphocytes % (auto) 24.2 %; Mean Corpuscular Hemoglobin 31.3 pg (25-34); Mean Corpuscular Hgb Conc 34.3 g/dL (32-36); Monocytes # (auto) 1.02 K/uL (0.11-0.59); Neutrophils # (auto) 5.76 K/uL (1.4-6.5); Neutrophils % (auto) 62.2 %; Platelet Count 289 K/uL (130-400); RDW Coefficient of Variation 13.7 % (11.5-14.5); RDW Standard Deviation 45.7 fL (36.4-46.3); White Blood Count 9.26 K/uL (4.8-10.8)
[2021-02-23] MEDS ORDERED: CHOLECALCIFEROL 1,000 UNITS 25 MCG TAB PO SCH (13:00)
[2021-02-23 13:09] LABS: BUN Creatinine Ratio 19.6 (10-20); Calcium 10.2 mg/dl (8.5-10.1); Creatinine Clr Calc Pharmacy 74.3 ml/min; Est GFR (African American) 82.2; Est GFR (Non-African American) 70.9; Potassium 3.5 mmol/L (3.5-5.1)
--- NOTE | 2021-02-23 18:20 | Hospitalist Progress Note ---
Date of Service February 23, 2021 Assessment & Plan (1) Right ureteral calculus: 60yo female with a PMH of nephrolithiasis p/w obstructing right renal calculus s/p cystoscopy, right ureteroscopy, right ureteral stone extraction, POD#1. Obstructing right ureteral calculus s/p extraction -stone extracted without need for stent -febrile overnight to 39.4 but resolved with tylenol, afebrile since then; suspected 2/2 post-op recovery -patient doing well, asymptomatic currently -continue tamuslosin 0.4mg PO qAM -continue tylenol 650mg PO q4h UTI -continue ceftriaxone IV, will convert to PO and continue upon discharge for total five days, per urology Hyperparathyoidism Hypercalcemia Vitamin D deficiency -workup revealed elevated calcium, high PTH, low vitamin D -discussed with Dr. Boucher, who recommends vitamin D 1000u daily in addition to outpatient follow-up in one month -no further workup or treatment indicated during this hospitalization Anxiety -continue escitalopram 10mg PO qAM -continue klonopin 0.5mg PO qd prn -continue vyvanze PO qAM FENGI: regular diet CODE STATUS: full code DISPO: likely discharge tomorrow Admission and Anticipated Discharge Date Admission Date: February 21, 2021 Supervising Physician Co-Signing Physician Notes Resident Physician Supervision Note: I independently interviewed and examined the patient and verified the baxter hist ory and physical, reviewed labs and image studies, discussed the case with the resident Dr. Mehta and agree with the findings and care plan. Subjective Patient seen at bedside this morning. Feels well, endorses a headache but no other complaints. Denies abdominal pain, flank pain, urinary symptoms, CP, SOB, nausea, vomiting, lightheadedness, or other symptoms. Happy she slept well last night. Feels like she is recovering well but would like to stay in the hospital one more night just in case. Review of Systems Review of Systems: See HPI Physical Exam Physical Exam: Well-appearing, NAD, laying in bed CV: regular rhythm, no murmur appreciated Resp: CTABL Abd: soft, nontender, nondistended, BS normoactive MSK: no flank tenderness Results & Data Results & Data ([facility] [place]) Vital Signs (Past 12 Hours) Vital Signs Temp Pulse Resp BP Pulse Ox 04/09/21 15:55 37.0 C 77 18 146/79 H 94 02/23/21 07:49 36.5 C 86 18 131/78 96 Resident Activity Tracking Resident Involvement: Resident Care Provided Care Provided: Adult Hospital Medicine
[2021-02-24] MEDS: cefTRIAXone SODIUM 2,000 MG in DEXTROSE 5% 50 ML IV SCH (01:19)
[2021-02-24 06:56] LABS: BUN Creatinine Ratio 19.5 (10-20); Calcium 10.7 mg/dl (8.5-10.1); Creatinine Clr Calc Pharmacy 90.6 ml/min; Est GFR (African American) 104.5; Est GFR (Non-African American) 90.1; Potassium 3.8 mmol/L (3.5-5.1)
[2021-02-24] MEDS ORDERED: CHOLECALCIFEROL 1,000 UNITS 25 MCG TAB PO SCH (09:00)
[2021-02-24] MEDS: VYVANSE PO SCH (09:36)
[2021-02-24] MEDS: TAMSULOSIN HCL 0.4 MG CAP PO SCH (09:36)
[2021-02-24] MEDS: ESCITALOPRAM OXALATE 10 MG TAB PO SCH (09:36)
[2021-02-24] MEDS: VYVANSE 70 MG PO SCH (09:36)
--- NOTE | 2021-02-24 15:07 | Discharge Summary ---
Date of Service February 24, 2021 Admission HPI Per Admitting Provider Patient is a 60 year old female with PMHx Anxiety, Depression, Nephrolithiasis, that presents with 2 day history of worsening R low back/flank pain and 1 day history of nausea and vomiting. Patient notes that 2 days ago she noted significant 10/10 sharp R side low back pain and flank pain and was evaluated in the ED. At that time she was found to have a stone in her R distal ureter and was given pain medications and flomax and discharged home to pass the stone. Patient returns today with complaint of nausea, fevers, chills, flank pain, and urinary urgency. She notes that she went and saw her Urologist at [facility] today as well and her temperature was 101F and was instructed to come to the ED. Of note patient states that she feels this has been an ongoing issue for the past 4-5 weeks where she has noted hematuria. She also states she had her 2nd COVID-19 vaccination yesterday on 02/20/21. Lastly she states that she a R knee meniscal repair 10 days ago. Her last renal stone was over 5 years ago which at that point she was able to pass without issues. She currently notes flank pain, nausea, urgency, and occasional chills and fevers. She denies any chest pain, chest pressure, SOB, vomiting, dysuria. Med Hx: Anxiety, Depression, Nephrolithiasis. Surg Hx: Inguinal hernia repair, ORIF L fib, R medial meniscal repair Soc Hx: No tobacco, alcohol, or illicit drug use. Admission Exam Per Admitting Provider Constitutional: WD/WN, vitals as above Eyes: PERRL, conjunctivae normal, anicteric sclerae Respiratory: normal respiratory effort, lungs clear to auscultation Cardiovascular: RRR, no murmur, no edema Gastrointestinal (Abdomen): Inspection/Auscultation: abdomen normal to inspection and normal bowel sounds; abdomen not distended Percussion/Palpation: + abdomen tender (slight TTP in the RLQ ) and abdomen soft; no guarding and abdomen not rigid Musculoskeletal: Head/Neck/Chest: normocephalic and head atraumatic Skin: no rashes, warm and dry Neurologic: PERRL, EOMI, accommodation nl, no face palsy, no dysarthria Psychiatric: A+Ox3, euthymic affect Genitourinary: no CVA tenderness Principal Diagnosis Obstructing right ureteral calculus Discharge Data Allergies Allergy/AdvReac Type Severity Reaction Status Date / Time Penicillins Allergy Mild RASH Verified 02/21/21 20:18 Sulfa (Sulfonamide Allergy Mild RASH Verified 02/21/21 20:18 Antibiotics) nickel AdvReac Mild SKIN Verified 02/21/21 20:18 IRRITATION Consultations 02/21/21 21:29 ED Decision to Admit Stat 02/21/21 23:25 Consult Urology Routine Procedures Performed Operation Date: 02/22/21 13:15 Actual Procedures p Cystoscopy, Right Ureteroscopy, Right Ureteral Stone Extraction(Right) - Godfrey Damon MD Ordered Studies 02/21/21 19:34 CT abd pelvis IV con only Stat 02/22/21 13:30 FL KUB Routine FL fluoroscopy <1hr Routine Hospital Course (1) Right ureteral calculus: Obstructing right ureteral calculus, hydronephrosis Imaging in the ED revealed an 8mm obstructing right ureteral calculus with resultant hydronephrosis. Urology was consulted, and patient was treated with IVF, pain control, and flomax. On hospital day two, urology performed ureteroscopy and right ureteral stone extraction. Patient tolerated the procedure well. Patient developed a fever but this resolved with tylenol and did not return. No further fevers. Patient was hemodynamically stable throughout the entirety of her stay. Blood cultures obtained on admission were negative at time of discharge. UTI UA on admission was suspicious for UTI. Patient was treated with IV ceftriaxone. Postoperatively, patient had no symptoms of UTI. Ceftriaxone IV was continued during her stay. Patient was discharged with two days of cefdinir to complete a total five day course of antibiotic therapy. Urine culture resulted as contaminated by skin evi. Hyperparathyoidism, hypercalcemia, vitamin D deficiency Patient's workup revealed elevated calcium, high PTH, and low vitamin D. Endocrinology reviewed patient's case, and recommended vitamin D 1000u daily, in addition to outpatient follow-up in one month. No further workup or treatment was indicated. Anxiety Patient's home dose escitalopram, clonazepam, and vyvanse were continued during her stay. Total Time Total Time Spent Total Time Spent (In Minutes): see attending documentation Discharge Plan Discharge Items Patient Disposition: Home - Self-Care Reason For Visit: NEPHROLITHIASIS, HYDRONEPHROSIS, COMP UTI Discharge Diagnosis: Nephrolithiasis, hydronephrosis, complicated UTI Activity: Resume your previous activity Non-emergency contact: Primary Care Provider Call non-emergency contact if: you have any medication questions, your symptoms worsen, your pain is not controlled and you have a fever Follow-up/Referrals: PCP,NO [Primary Care Provider] - Diet: Regular Addtl Attending Provider Instructions: You were admitted to the hospital for a kidney stone and a urinary tract infection. You were treated with intravenous fluids, antibiotics, and you underwent a surgical procedure to remove the kidney stone. A discharge summary will be sent to your primary care physician to ensure continuity of care. Please bring this discharge summary with you to your next office appointment so that your provider can review it at that time. Follow-up appointments: Make a follow-up appointment with your PCP within the next week. It is very important that you follow up with them shortly after discharge from the hospital. We recommend talking to your PCP about getting a DEXA scan, which screens for osteoporosis. Your PCP can help you decide if this test is right for you. You will have a follow-up appointment with the front desk specialist, Dr. Boucher, or one his colleagues, in about one month. Their food management aide will reach out to you to let you know when the appointment will be. If you do not hear from them in one week, give their office a call at [phone]. Keep all your follow-up appointments as already scheduled. If you cannot make an appointment, notify your provider. Medications: Your medication list has been reviewed and reconciled upon discharge to ensure accuracy and continuity of care. You are provided with a list of all your current medications at this time. Please review this list closely and make note of any changes. Please take all of your medications exactly as prescribed. The following medications have been sent to your pharmacy ([facility] in [place]): * You have been prescribed cefdinir 300mg tablets. Cefdinir is an antibiotic. Take cefdinir one capsule twice daily for two more days (from 02/25 to 02/26). * You have been prescribed vitamin D3 (dose: 25mcg or 1000 units). Take vitamin D3 one tablet daily. Please continue your other medications as previously prescribed. Tell your primary care provider if you cannot afford your medications. Call your primary care provider if you are having any side effects or any other problems. Call your primary care provider before taking any over the counter medications or supplements, including herbals and vitamins, because some of these may interact with your current medications and/or make your symptoms worse. CONTACT YOUR PRIMARY CARE PROVIDER if you experience any of the following: Fever, chills, nausea, vomiting New abdominal pain Ongoing or worsening fatigue Shortness of breath or difficulty breathing Inability to take medications or follow treatment plan CALL 911 OR GO TO THE EMERGENCY DEPARTMENT if you experience any of the following: Sudden, severe abdominal pain Sudden, severe nausea or vomiting Not producing urine Sudden chest pain, or chest pain that radiates (moves) to your jaw or arm Sudden, severe shortness of breath or difficulty breathing Thank you for allowing us to participate in your care. Pending Studies at Discharge: No Stand-Alone Forms: [facility] Medications and DC Order Prescriptions: New cholecalciferol (vitamin D3) 25 mcg (1,000 unit) Capsule 1,000 unit PO QAM 30 Days Qty: 30 RF: 2 cefdinir 300 mg capsule 300 mg PO BID Qty: 4 RF: 0 Continued clonazepam 0.5 mg tablet 0.5 mg PO DAILY PRN (Reason: Anxiety) RF: 0 escitalopram oxalate [Lexapro] 10 mg tablet 10 mg PO QAM RF: 0 tamsulosin [Flomax] 0.4 mg capsule 0.4 mg PO DAILY Qty: 10 RF: 0 clobetasol 0.05 % cream 1 applic topical DAILY RF: 0 Restasis 0.05 % Dropperette 1 drp OPHTHALMIC (EYE) Q12H RF: 0 Vyvanse 70 mg Capsule 70 mg PO QAM RF: 0 Discontinued oxycodone 5 mg tablet 5 mg PO Q6H PRN (Reason: pain) Qty: 10 RF: 0 Discharge Orders: Discharge Order (Routine); Ordered 02/24/21 Ordered By: Joe Butler Admission Data Admit Date/Time: 02/21/21 22:02 Attending Provider: Coni Nava Admit Provider: Koko Mayfield Primary Care Provider: PCP,NO Other Providers: Antonia Laura David Other Interventions: Discharge Summary Assessment (RN) Last Done: 02/24/21 11:50 Supervising Physician Co-Signing Physician Notes Resident Physician Supervision Note: I independently interviewed and examined the patient and verified the baxter history and physical, reviewed labs and image studies, discussed the case with the resident Dr. Mehta and agree with the findings and care plan. Resident Activity Tracking Resident Involvement: Resident Care Provided Care Provided: [facility]
[2021-02-28 23:25] LABS: Component 2 DNR; Source RIGHT URETERAL STONE
== END 2021-02-24 13:10 | disposition home or self-care (01) ==
LOC: ED 16:48 → INTOOBSV 22:02 → SUATTDRO 22:02 → 3W 22:02